=== PATIENT | male | born 1950 | race Caucasian/White ===

== ENCOUNTER → 2018-02-17 15:27 | Outpatient (REF) | payer MEDICARE, OTHER, SELFPAY ==
[2018-02-17 19:46] LABS: COMMENT (LAB VIEW ONLY) 97.37 mg/dL; Microalb ug/mg Crea 55.7 ug/mg Cr
== END ==
LOC: NCHCN 15:27
PROVIDERS: PCP Family Medicine; Visit Provider Family Medicine
DX: N39.0 Urinary tract infection, site not specified (principal); R73.09 Other abnormal glucose
CPT/HCPCS: 87077; 82043; 82570; 87086; 87186

== ENCOUNTER → 2018-04-21 10:01 | Outpatient (BNVA) | payer MEDICARE, OTHER, SELFPAY | PROVIDERS: PCP Family Medicine; Visit Provider Urology | DX: C67.9 Malignant neoplasm of bladder, unspecified (principal) | CPT/HCPCS: 52000; 99213 ==

== ENCOUNTER 2018-05-19 13:22 | Outpatient (REF) | payer MEDICARE, OTHER, SELFPAY ==
[2018-05-19 15:14] LABS: COMMENT (LAB VIEW ONLY) 219.38 mg/dL; Microalb ug/mg Crea 6.1 ug/mg Cr
[2018-05-19 19:06] LABS: Anion Gap 7.9 mmol/L (3-11); BUN 15 mg/dL (7-18); CO2 29.1 mmol/L (21.0-32.0); CREATININE 0.93 mg/dL (0.70-1.30); Calcium 8.8 mg/dL (8.5-10.1); Chloride 103 mmol/L (98-107); Glucose 112 mg/dL (70-100); Potassium 4.3 mmol/L (3.5-5.1); Sodium 140 mmol/L (136-145)
== END 2018-05-19 13:42 ==
LOC: NCHCN 13:22
PROVIDERS: PCP Family Medicine; Visit Provider Family Medicine
DX: E11.9 Type 2 diabetes mellitus without complications (principal)
CPT/HCPCS: 80048; 82043; 82570

== ENCOUNTER → 2018-07-28 12:37 | Outpatient (BNVA) | payer MEDICARE, OTHER, SELFPAY | PROVIDERS: PCP Family Medicine; Visit Provider Urology | DX: C67.9 Malignant neoplasm of bladder, unspecified (principal) | CPT/HCPCS: 52000; 99212 ==

== ENCOUNTER 2018-08-31 09:12 | Outpatient (CLI) | payer MEDICARE, OTHER, SELFPAY ==
--- NOTE | 2018-08-31 09:00 | DI.RAD_ITS ---
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 LESIONS LUMBAR SPINE: Comparison is made with CT of the abdomen and pelvis dated 03/02/12. There is a stable mild compression fracture of L 1. There is also a stable L 5 spondylolysis and mild L 5-S 1 spondylolisthesis. There is partial lumbarization of S 1. There is moderate narrowing of the L 5-S 1 disc space. This also appears unchanged. The remaining disc spaces are well maintained. Endplate osteophytes are seen. The patient is status post cholecystectomy. Stool is seen throughout the colon. The aorta shows calcification but appears normal in diameter. IMPRESSION: Stable L 1 compression fracture. Stable L 5 spondylolysis and mild L 5-S 1 spondylolisthesis.
== END 2018-08-31 09:32 ==
PROVIDERS: PCP Family Medicine; Visit Provider Family Medicine
DX: M54.31 Sciatica, right side (principal); M54.5 Low back pain; M43.06 Spondylolysis, lumbar region; M48.56XD Collapsed vertebra, not elsewhere classified, lumbar region, subsequent encounter for fracture with routine healing; M43.17 Spondylolisthesis, lumbosacral region
CPT/HCPCS: 72110

== ENCOUNTER → 2019-02-08 08:49 | Outpatient (BNVA) | payer MEDICARE, OTHER, SELFPAY | PROVIDERS: PCP Family Medicine; Visit Provider Urology | DX: Z85.51 Personal history of malignant neoplasm of bladder (principal) | CPT/HCPCS: 52000; 99212 ==

== ENCOUNTER 2019-05-22 10:23 | Outpatient (REF) | payer MEDICARE, OTHER, SELFPAY ==
[2019-05-22 18:53] LABS: Hemoglobin A1C 6.6 % (4.5-6.2)
[2019-05-22 19:11] LABS: CREATININE 1.02 mg/dL (0.70-1.30); Calculated LDL 91 mg/dL; Cholesterol 138 mg/dL (<200); HDL Cholesterol 36 mg/dL (40-60); Triglyceride 56 mg/dL (<150)
[2019-05-24 10:42] LABS: Hepatitis C Ab w Rflx HCV PCR Negative (Negative)
== END 2019-05-22 10:43 ==
LOC: NCHCN 10:23
PROVIDERS: PCP Family Medicine; Visit Provider Family Medicine
DX: E11.9 Type 2 diabetes mellitus without complications (principal); Z11.59 Encounter for screening for other viral diseases
CPT/HCPCS: 80061; 86803; 82565; 83036

== ENCOUNTER 2019-07-11 14:23 | Emergency (ER) | payer MEDICARE, OTHER, SELFPAY ==
[2019-07-11 14:30] VITALS: BP 148/81; PULSE 62; RESP 12; TEMP 36.3; O2SAT 96
[2019-07-11] MEDS: Normal Saline 1,000 ML 1000 ML IV (14:51)
[2019-07-11 14:54] VITALS: RESP 16
--- NOTE | 2019-07-11 15:19 | ED.GENADUL_ITS ---
Discharge Plan Disposition Patient Disposition: [facility] Condition: Serious Discharge Details Chief Complaint: Dizzy/Sync Clinical Impression: Vertigo Primary Care Provider: Glynn Farris ED Provider: Darin Lacey Home Meds and New Rx's Prescriptions: No Action omega-3 fatty acids-fish oil 1 EACH capsule 1 ea PO DAILY RF: 0 lutein 20 MG capsule 20 mg PO DAILY RF: 0 omeprazole 20 MG capsule,delayed release(DR/EC) 20 mg PO DAILY Qty: 14 RF: 1 ascorbic acid (vitamin C) 1,000 MG tablet 1,000 mg PO DAILY RF: 0 cetirizine 10 MG tablet 10 mg PO DAILY RF: 0 aspirin 81 MG tablet,chewable 81 mg PO DAILY RF: 0 cholecalciferol (vitamin D3) 1,000 UNITS tablet 1,000 units PO DAILY RF: 0 Discharge Data Discharge Date/Time-TO BE ENTERED AT DEPARTURE: 07/11/19 20:00 Medical Decision Making 15:50 --68-year-old male presents with positional vertigo since yesterday. Unsteady gait. Patient does have horizontal and rotary nystagmus. Head impulse testing inconclusive as patient had difficulty relaxing his neck for unpredictable turning. Skew testing negative. Chavo maneuver was performed without resolution of symptoms. Antivert to be administered. 18:00 -- MR brain interpreted by radiology: Upon further review there is nonspecific intermediate T1 and T2 signal within the right transverse sinus, right sigmoid sinus, and right internal jugular vein. Venous thrombosis cannot be excluded. MRA neck interpreted by radiology: IMPRESSION: No hemodynamically significant stenosis. MRA head interpreted by radiology: IMPRESSION: No acute findings. Recommend correlation with venographic imaging (CTV vs MRV). CTV and MRV are not available at this time at [facility] - plan to discuss with [facility] neurology. Study sent to [facility]. 18:07 --I spoke with Gonzalo at [facility] transfer center and requested transfer for neurologic evaluation. Awaiting callback from neurology. 18:38 -- I spoke with Dr. Guan at [facility] neurology. Recommends start heparin gtt and will accept the patient to the emergency department in transfer. Patient has no contraindications to heparin. Plan to start heparin infusion. HPI General Mode of arrival: ambulatory . Date/Time Provider Initiated Documentation: 07/11/19 14:53 . Limitations to Documentation: no limitations . Information obtained by: patient . HPI Narrative: 68-year-old male with prior history of malignant neoplasm of urinary bladder, presents with chief complaint of dizziness. Patient describes the dizziness as room spinning vertigo. Symptoms started yesterday and were mild and seem to be related to position of his head. When he woke up this morning symptoms were much worse. He had associated nausea and vomiting. Patient states that when he is lying flat he does not have symptoms but when he sits up and or moves his head he experiences dizziness. No associated headache. No visual changes. No numbness or weakness. No fevers. Related Data Home Medications Medication Instructions Recorded Confirmed lutein 20 mg PO DAILY 01/06/14 07/11/19 omeprazole 20 mg PO DAILY #14 capsule. 01/06/14 07/11/19 ascorbic acid (vitamin C) 1,000 mg PO DAILY 12/31/15 07/11/19 aspirin 81 mg PO DAILY 12/31/15 07/11/19 cetirizine 10 mg PO DAILY 12/31/15 07/11/19 omega-3 fatty acids-fish oil 1 ea PO DAILY 07/23/16 07/11/19 cholecalciferol (vitamin D3) 1,000 units PO DAILY 10/13/17 07/11/19 Previous Rx's Medication Instructions Recorded omeprazole 20 mg PO DAILY #14 capsule. 01/06/14 Allergies Allergy/AdvReac Type Severity Reaction Status Date / Time No Known Allergies Allergy Unverified 07/11/19 14:55 General Stated Complaint: Dizzy/Sync NORA: 3 Review of Systems All systems reviewed & are unremarkable except as noted in HPI and below Constitutional Constitutional: Denies fever(s) Neurologic Neurologic: Reports as per HPI [facility] Social History Smoking/Tobacco Use Status: Former Tobacco Use Alcohol Intake: current Drug use: Never Substance use type: does not use Do you feel safe at home: Yes Do you feel safe in your relationship?: Yes Exam Const General: cooperative and no acute distress HENMT Head: normocephalic and atraumatic Mouth: moist mucous membranes Eyes Conjunctivae: normal conjunctivae Sclera: normal sclerae Pupils: PERRL, accommodation normal and pupil size bilaterally 4 EOM: EOM intact bilaterally and nystagmus (horizontal on left gaze, and rotory on vertical gaze) Neck Neck: trachea midline and supple Resp Auscultation: clear to auscultation bilaterally, no rales, no rhonchi and no wheezes Cardio Jugular venous pressure: no JVD Rate: regular rate and not tachycardic Rhythm: regular rhythm GI Palpation: soft, not firm, no guarding, no masses, not rigid and nontender Skin General skin exam: no rashes or lesions noted Neuro General: alert, awake, oriented x3 and tone normal Cranial Nerves: facial strength normal, tongue midline and nystagmus (horizontal on left gaze, and rotory on vertical gaze) Cognition: normal cognition Speech: speech normal Gait: staggering Motor: muscle tone normal throughout and strength 5/5 throughout Sensory Exam: no sensory deficits noted Coordination: [id number] test normal and rapid alternating movement UE normal (normal) Extrem General: no edema Psych Appearance: grossly normal Mental Status: mental status grossly normal Speech and Movement: speech and movement normal Course Vital Signs Vital signs: Vital Signs Temperature 36.3 C L 07/11/19 14:30 Pulse 62 07/11/19 14:30 Respiratory Rate 12 07/11/19 14:30 Blood Pressure 148/81 H 07/11/19 14:30 Pulse Oximetry 96 07/11/19 14:30 Temperature 36.3 C L 07/11/19 14:30 Temperature Source Temporal Artery Scan 07/11/19 14:30 Pulse 62 07/11/19 14:30 Respiratory Rate 16 07/11/19 14:54 Respiratory Effort Non-Labored 07/11/19 14:54 Respiratory Depth Normal 07/11/19 14:54 Respiratory Pattern Normal 07/11/19 14:54 Blood Pressure 148/81 H 07/11/19 14:30 Blood Pressure Position Sitting 07/11/19 14:30 Pulse Oximetry 96 07/11/19 14:30 Oxygen Delivery Method Room Air 07/11/19 14:30 Oxygen Flow Rate 0 07/11/19 14:30 Pain Level 0 07/11/19 14:30 Critical Care Time Critical Care Time Critical Care Time: Yes Total Critical Care Time: 40 Attestation: I spent greater than 40 minutes addressing this patient's immediate life threats
[2019-07-11] MEDS: Meclizine 25 MG TAB PO (15:28)
[2019-07-11 15:44] LABS: Abs Immature Grans 0.03 k/cumm (0.0-0.09); Absolute Basophil Count 0.01 k/cumm (0.0-0.2); Absolute Eosinophil Count 0.01 k/cumm (0.0-0.7); Absolute Lymphocyte Count 1.29 k/cumm (1.2-3.4); Absolute Monocyte Count 0.25 k/cumm (0.11-0.7); Absolute Neutrophil Count 5.06 k/cumm (1.2-6.7); Basophils % 0.2; Eosinophils % 0.2; HCT 42.1 % (40.0-50.0); HGB 14.6 g/dL (13.5-17.5); Immature Grans % 0.5 %; Lymphocytes % 19.4; Mean Corp. HGB Concentration 34.7 g/dL (32.0-36.0); Mean Corpuscular Hemoglobin 31.4 pg (27.0-33.0); Mean Corpuscular Volume 90.5 fL (80-95); Mean Platelet Volume 10.6 fL (8.0-11.0); Monocytes % 3.8; Neutrophils % 75.9; Platelet Count 169 x1000/uL (130-400); RBC 4.65 m/cumm (4.50-6.00); RBC Distribution Width 12.3 % (11.8-14.1); White Blood Cell Count 6.65 k/cumm (4.4-10.8)
[2019-07-11 15:45] LABS: ALT 31 U/L (16-63); AST 17 U/L (15-37); Albumin 4.1 g/dL (3.4-5.0); Alkaline Phosphatase 57 U/L (46-116); Anion Gap 13.2 mmol/L (3-11); BUN 14 mg/dL (7-18); Bilirubin, Total 1.2 mg/dL (0.2-1.0); CO2 24.8 mmol/L (21.0-32.0); Chloride 101 mmol/L (98-107); Glucose 180 mg/dL (74-106); Magnesium 1.9 mg/dL (1.8-2.4); Potassium 3.9 mmol/L (3.5-5.1); Sodium 139 mmol/L (136-145); Total Protein 7.4 g/dL (6.4-8.2)
[2019-07-11] MEDS: Ondansetron 4 MG/2 ML VIAL IVP (16:08)
--- NOTE | 2019-07-11 16:26 | DI.MRI_ITS ---
EXAM: MR BRAIN WO, MRA BRAIN AND NECK CLINICAL HISTORY: vertigo. TECHNIQUE: Multiplanar multisequence MRI was performed. COMPARISON: MR ANGIO NECK WO from 07/11/2019 MR ANGIO BRAIN WO from 07/11/2019 MR ANGIO NECK WO from 07/11/2019 FINDINGS: MR examination of the brain was performed according to the usual protocol. The orbital and temporal bone structures appear intact. Diffusion-weighted imaging is unremarkable. Susceptibility weighted imaging is unremarkable. Scattered focal areas of abnormal signal in periventricular white matter no arabella consistent with microvascular ischemic change. No other significant signal abnormality identifie d in the brain. Ventricular system is normal in appearance. There is question of abnormal signal in the right transverse sinus, sigmoid sinus and internal jugula r vein on T1 and T2 weighted images. Thrombosis not excluded although this is probably artifactual. Correlation with MR venogram recommended. MR angiography of the xtiouc-dh-Twuauj region was performed according to the usual protocol. Interna l carotid, middle cerebral, anterior cerebral, and posterior cerebral arteries and major branches lacie ear intact as visualized. No aneurysm, dissection or stenosis. Venous system not visualized on this protocol. MR angiography of the carotid circulation was performed according to the usual protocol. Visualized common internal and external carotid arteries are unremarkable as visualized. Arteries in superior t horax not well seen due to artifact. IMPRESSION: No definite abnormality seen within the brain. Possible abnormality of venous sinuses on the right a s described above. Correlation with MR venogram recommended. MR angiography of the brain shows no evidence of abnormality of the cerebral arterial circulation. MR angiography of the neck also shows no evidence of abnormality of the cervical carotid arteries.
--- NOTE | 2019-07-11 17:37 | DI.VRAD_ITS ---
Addendum created by Óscar Miller MD on 07/11/2019 5:54:44 PM EST Upon further review there is nonspecific intermediate T1 and T2 signal within the right transverse sinus, right sigmoid sinus, and right internal jugular vein. Venous thrombosis cannot be excluded. Recommend correlation with venographic imaging (CTV vs MRV). THIS REPORT CONTAINS FINDINGS THAT MAY BE CRITICAL TO PATIENT CARE. The findings were verbally communicated via telephone conference with ROBSON SHAVER at 5:54 PM EST on 07/11/2019. The findings were acknowledged and understood. Initial report created on 07/11/2019 5:37:31 PM EST PROCEDURE INFORMATION: Exam: MR Head Without Contrast Exam date and time: 07/11/2019 5:13 PM Age: 68 years old Clinical indication: Other: Vertigo TECHNIQUE: Imaging protocol: MR of the head without contrast. 3D rendering: MIP and/or 3D reconstructed images were created by the technologist. COMPARISON: No relevant prior studies available. FINDINGS: Brain: Few scattered nonspecific T2 hyperintensities of the periventricular and deep subcortical white matter, most likely secondary to chronic small vessel ischemic change. No intracranial hemorrhage or extra-axial fluid collection. No evidence of mass effect or midline shift. No restricted diffusion to suggest acute infarct. Ventricles: No ventriculomegaly. Bones/joints: Unremarkable. Soft tissues: Unremarkable. Sinuses: Unremarkable. Mastoid air cells: No mastoid effusion. Orbits: Unremarkable. IMPRESSION: No acute intracranial pathology. Dictated and Authenticated by: Óscar Miller MD. Ordering:HANSEL Webster MD
--- NOTE | 2019-07-11 17:38 | DI.VRAD_ITS ---
PROCEDURE INFORMATION: Exam: MR Angiogram Head Without Contrast, Arteries Exam date and time: 07/11/2019 5:14 PM Age: 68 years old Clinical indication: Other: Vertigo TECHNIQUE: Imaging protocol: MR angiogram head without contrast. Exam focused on the arteries. 3D rendering: MIP and/or 3D reconstructed images were created by the technologist. COMPARISON: No relevant prior studies available. FINDINGS: Right internal carotid artery: Unremarkable. Intracranial segment is patent with no significant stenosis. No aneurysm. Right anterior cerebral artery: Unremarkable. No occlusion or significant stenosis. No aneurysm. Right middle cerebral artery: Unremarkable. No occlusion or significant stenosis. No aneurysm. Right posterior cerebral artery: Unremarkable. No occlusion or significant stenosis. No aneurysm. Right vertebral artery: Unremarkable. No occlusion or significant stenosis. No aneurysm. Left internal carotid artery: Unremarkable. Intracranial segment is patent with no significant stenosis. No aneurysm. Left anterior cerebral artery: Unremarkable. No occlusion or significant stenosis. No aneurysm. Left middle cerebral artery: Unremarkable. No occlusion or significant stenosis. No aneurysm. Left posterior cerebral artery: Unremarkable. No occlusion or significant stenosis. No aneurysm. Left vertebral artery: Unremarkable. No occlusion or significant stenosis. No aneurysm. Basilar artery: Unremarkable. No occlusion or significant stenosis. No aneurysm. IMPRESSION: No acute findings. Dictated and Authenticated by: Óscar Miller MD. Ordering:HANSEL Webster MD
--- NOTE | 2019-07-11 17:40 | DI.VRAD_ITS ---
PROCEDURE INFORMATION: Exam: MR Angiography Neck Without Contrast Exam date and time: 07/11/2019 5:14 PM Age: 68 years old Clinical indication: Other: Vertigo TECHNIQUE: Imaging protocol: Magnetic resonance angiography of the neck without contrast. COMPARISON: No relevant prior studies available. FINDINGS: Right common carotid artery: No significant stenosis or occlusion. Right internal carotid artery: Extracranial segment is patent without evidence of hemodynamically significant stenosis. Right external carotid artery: Unremarkable. Right vertebral artery: No significant stenosis or occlusion. Left common carotid artery: No significant stenosis or occlusion. Left internal carotid artery: Extracranial segment is patent without evidence of hemodynamically significant stenosis. Left external carotid artery: Unremarkable. Left vertebral artery: No significant stenosis or occlusion. IMPRESSION: No hemodynamically significant stenosis. COMMENT: Reference per NASCET criteria for degree of stenosis: Mild: less than 50% stenosis. Moderate: 50-69% stenosis. Severe: 70-94% stenosis. Near occlusion: 95-99% stenosis. Dictated and Authenticated by: Óscar Miller MD. Ordering:HANSEL Webster MD
[2019-07-11 17:43] LABS: Bilirubin Negative (Negative); Blood Negative (Negative); Clarity Clear (Clear); Glucose Negative (Negative); Ketones 15 mg/dL (Negative); Leukocyte Esterase Negative (Negative); Nitrite Negative (Negative); Urobilinogen 0.2 EU/dL (Up TO 0.2)
[2019-07-11 17:44] VITALS: BP 139/77; PULSE 60; RESP 18; TEMP 36.5; O2SAT 99
[2019-07-11 18:46] VITALS: BP 157/90; PULSE 64; RESP 15; TEMP 36.8; O2SAT 92
[2019-07-11 19:22] VITALS: BP 125/60; PULSE 59; RESP 16; TEMP 37; O2SAT 99
[2019-07-11 19:28] LABS: PTT Activated 20.6 sec (21.0-31.4)
[2019-07-11 19:50] VITALS: BP 127/71; PULSE 68; RESP 16; TEMP 37; O2SAT 98
== END 2019-07-11 20:00 | disposition short-term general hospital (02) ==
PROVIDERS: Emergency Provider Student in an Organized Health Care Education/Training Program; PCP Family Medicine
DX: R42 Dizziness and giddiness (principal); R26.81 Unsteadiness on feet; R11.2 Nausea with vomiting, unspecified
CPT/HCPCS: 36415; 70544; 70547; 80053; 93005; 96361; 96365; 96375; 99285; 70551; 81003; 83735; 85025; 85730; 93010; J2405

== ENCOUNTER 2020-04-29 16:17 | Outpatient (REF) | payer MEDICARE, OTHER, SELFPAY ==
[2020-05-04 17:17] LABS: Patient Race White; SARS-CoV-2 RNA Undetected (Undetected); SARS-CoV-2 Specimen Source Nasal
== END 2020-04-29 16:37 ==
LOC: NCHCN 16:17
PROVIDERS: PCP Family Medicine; Visit Provider Physician Assistant
DX: Z11.59 Encounter for screening for other viral diseases (principal)
CPT/HCPCS: U0003

== ENCOUNTER 2020-05-07 13:02 | Outpatient (REF) | payer MEDICARE, OTHER, SELFPAY ==
[2020-05-07 20:13] LABS: Anion Gap 8.2 mmol/L (3-11); BUN 16 mg/dL (7-18); CO2 30.8 mmol/L (21.0-32.0); CREATININE 1.04 mg/dL (0.70-1.30); Calcium 9.2 mg/dL (8.5-10.1); Chloride 100 mmol/L (98-107); Glucose 125 mg/dL (74-106); Potassium 4.2 mmol/L (3.5-5.1); Sodium 139 mmol/L (136-145); TSH (W/Ref FT4) 2.01 uIU/mL (0.36-3.74); Vitamin B12 173 pg/mL (193-986)
== END 2020-05-07 13:22 ==
LOC: NCHCN 13:02
PROVIDERS: PCP Family Medicine; Visit Provider Family Medicine
DX: G56.03 Carpal tunnel syndrome, bilateral upper limbs (principal); E11.9 Type 2 diabetes mellitus without complications
CPT/HCPCS: 80048; 82607; 84443

== ENCOUNTER 2020-05-28 17:48 | Outpatient (REF) | payer MEDICARE, OTHER, SELFPAY ==
[2020-06-01 10:13] LABS: Patient Race White; SARS-CoV-2 RNA Undetected (Undetected); SARS-CoV-2 Specimen Source Nasal
== END 2020-05-28 18:08 ==
LOC: NCHCN 17:48
PROVIDERS: PCP Family Medicine; Visit Provider Physician Assistant
DX: Z11.59 Encounter for screening for other viral diseases (principal)
CPT/HCPCS: U0003

== ENCOUNTER 2020-06-25 01:22 | Outpatient (CLI) | payer OTHER, SELFPAY ==
--- OUTSIDE RECORDS SUMMARY | 2020-06-25 01:25 | XMS_ITS | Encounter Summary ---
:1950 Author Organization [facility] Address [address] [place] [id number] Support Name Relationship Address Phone HINA Unavailable [address] [facility] [address] HINA Unavailable [address] [place] [address] Insurance Providers: All historical and current Section Date Range: From patient's date of to the date document was created.This section includes the names of all active insurance providers for the patient. Insurance Type of Plan Start of End of Group Member Insurance Policy P atient's Provider Coverage Name Policy Policy Number ID Provider's Cornell's Relationship Coverage Coverage Telephone Name to Policy Number Cornell EXPRESS PRESCRIPT TRICA Dec 02, [place] [id number] [phone] CARLTON SANTAMARIA PATIENT SCRIPTS ION RE 2018 44 4 AIN [place] MEDICARE MEDICARE PART Dec 02, PART A [id number] CARLTON SANTAMARIA ISL PATIENT (WNR) (M) A 2018 [id number] AIN MEDICARE MEDICARE PART Dec 02, PART B [id number] CARLTON SANTAMARIA ISYaa PATIENT (WNR) (M) B 2018 [id number] AIN -FO TRICA Dec 02, [id number] Chi SANTAMARIA HISL PATIENT R-LIFE RE 2018 [id number] AIN Selected Encounter This section includes the information on record at [place] for the Encounter. Date/Time Encounter Type Encounter Reason Provider Source Description Sep 11, 2019 Outpatient OPTOMETRY ICD-10-CM Z46.0 JAMSHID JEFFERS 01:00 PM Encounter Encounter for TOM fit/adjst of spectacles and contact lenses with Provider Comments: Encounter for Fitting and Adjustment of Spectacles and Contact Lenses IHE Encounter Template Text not used by [place] Assessments - Encounter Diagnoses This section includes the primary and secondary diagnoses documented forthe Encounter. Date/Time Primary/Secondary Diagnosis Name Provider Source Diagnosis Sep 11, 2019 PRIMARY Encounter for HALLE LUEVANO 01:09 PM fit/adjst of [place] [facility] spectacles and contact lenses Plan of Treatment: Future Appointments (+ 6 months) and Future Tests (+/- 45 days) The Plan of Treatment section includes future care activities for the patient from all [place] treatment facilities. This section includes future appointments and future orders which are active, pending or scheduled.Future Appointments This section includes appointments that were scheduled to occur 6 months from the date of the Encounter, up to a maximum of 20 appointments. The data [facility] [place] [facility] Appointment Date/Time Appointment Type Appointment Facili ty Name Mar 06, 2020 11:00 AM AMBULATORY - SURGERY [place] [facility] Encounter Notes: All associated encounter notes This section contains the clinical notes associated to the Encounter. 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 /landon/ JAMSHID JEFFERS Wardrobe Custodian Signed: 09/11/2019 13:09
--- OUTSIDE RECORDS SUMMARY | 2020-06-25 01:25 | XMS_ITS ---
:1950 Author Organization [facility] Address [address] [place] [id number] Support Name Relationship Address Phone HINA Unavailable [address] [facility] [place] [address] HINA Unavailable [address] [facility] [place] [address] Insurance Providers: All historical and current Section [...] Cornell EXPRESS PRESCRIPT TRICA Dec 02, [place] [id number] [phone] CARLTON SANTAMARIA PATIENT SCRIPTS ION RE 2018 44 4 AIN [place] MEDICARE MEDICARE PART Dec 02, PART A [id number] CARLTON SANTAMARIAL PATIENT (WNR) (M) A 2018 [id number] 2 AIN MEDICARE MEDICARE PART Dec 02, PART B [id number] CARLTON SANTAMARIA PATIENT (WNR) (M) B 2018 [id number] AIN -FO TRICA Dec 02, [id number] Chi SANTAMARIA HISL PATIENT R-LIFE RE 2018 95 404 AIN Selected Encounter This section includes the information on record at [place] for the Encounter. Date/Time Encounter Type Encounter Reason Provider Source Description Aug 31, 2019 OFFICE OR OTHER PRIMARY ICD-10-CM Z23 PAMELATIGTHERESA STANLEY 10:00 AM OUTPATIENT VISIT CARE/MEDICINE Encounter for ORA A FOR THE immunization with EVALUATION AND Provider MANAGEMENT OF AN Comments: ESTABLISHED Encounter for PATIENT, THAT MAY Immunization NOT REQUIRE THE PRESENCE OF A PHYSICIAN OR OTHER QUALIFIED HEALTH OCCUPATIONAL THERAPY PROGRAM DIRECTOR. USUALLY, THE PRESENTING PROBLEM(S) ARE MINIMAL. TYPICALLY, 5 MINUTES ARE SPENT PERFORMING OR SUPERVISING THESE SERVICES. [facility] Encounter Template Text not used by [place] Assessments - Encounter Diagnoses This section includes the primary and secondary diagnoses documented forthe Encounter. Date/Time Primary/Secondary Diagnosis Name Provider Source Diagnosis Aug 31, 2019 PRIMARY Encounter for QUENTIN FERGUSON 09:51 AM immunization [facility] Plan of Treatment: Future Appointments (+ 6 months) and Future Tests (+/- 45 days) The Plan of Treatment section includes future care activities for the patient from all [place] treatment facilities. This section includes future appointments and future orders which are active, pending or scheduled.Future Appointments This section includes appointments that were scheduled to occur 6 months from the date of the Encounter, up to a maximum of 20 appointments. The data comes from all [place] [facility] Appointment Date/Time Appointment Type Appointment Facili ty Name Sep 11, 2019 12:00 PM AM[place]ORY [place] [facility] Sep 11, 2019 01:00 PM [facility] - [place] [facility] Immunizations: All administered on the encounter date This section contains immunizations associated to the Encounter. Immunization Series Date Issued Reaction Comments ZOSTER RECOMBINANT 2 Aug 31, 2019 Social History: Smoking Status (Most current) and Tobacco Use (All prior to encounter date) This section includes the most current, and the historical, smoking and tobacco-related health factors from the [place] facility where the Encounter took place.Current Smoking Status This section includes the most current smoking, or tobacco-related health factor, from the [place] facility where the Encounter took place. Date/Time Current Smoking Status Comment Facility May 09, 2019 03:56 PM [place]-TOBACCO QUIT 5 TO < 15 YRS [facility] Tobacco Use History This section includes a history of the smoking, or tobacco-related health factors, that were collected on or before the date of the Encounter. The data comes from the [place] facility where the Encounter took place. Date/Time Smoking Status/Tobacco Use Comment [facility] May 09, 2019 03:56 PM [place]-TOBACCO QUIT 5 TO < 15 YRS [facility] Encounter Notes: All associated encounter notes This section contains the clinical notes associated to the Encounter. 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
--- OUTSIDE RECORDS SUMMARY | 2020-06-25 01:25 | XMS_ITS | Encounter Summary ---
:1950 Author Organization [facility] Address [address] [place] [id number] Support Name Relationship Address Phone HINA Unavailable [address] [facility] [place] [address] HINA Unavailable [address] [facility] [place] [address] Insurance Providers: All historical and current Section [...] Cornell EXPRESS PRESCRIPT TRICA Dec 02, DOD[place] [id number] [phone] CARLTON SANTAMARIA PATIENT SCRIPTS ION RE 2017 44 4 AIN [place] MEDICARE MEDICARE PART Dec 02, PART A [id number] CARLTON SANTAMARIAL PATIENT (WNR) (M) A 2018 KQ14 2 AIN MEDICARE MEDICARE PART Dec 02, PART B [id number] CARLTON SANTAMARIA ISYaa PATIENT (WNR) (M) B 2018 KQ14 2 AIN -FO TRICA Dec 02, 339 [id number] Chi SANTAMARIA HISL PATIENT R-LIFE RE 2018 [id number] AIN Selected Encounter This section includes the [facility] at [facility]. Date/Time Encounter Type Encounter Description Reason Provider Source Jun 24, 2020 09:07 Outpatient Encounter PRIMARY CARE/MEDICINE AM IHE Encounter Template Text not used by [facility] Plan of Treatment: Future Appointments (+ 6 months) and Future Tests (+/- 45 days) The Plan of Treatment section includes future care activities for the patient from all [place] treatment facilities. This section includes future appointments and future orders which are active, pending or scheduled.Future Appointments This section includes appointments that were scheduled to occur 6 months from the date of the Encounter, up to a maximum of 20 appointments. The data comes from all [facility]. Appointment Date/Time Appointment Type Appointment Facili ty Name Aug 11, 2020 08:30 AM AMBULATORY - REHAB MEDICINE MITZI QUISPELynda Edison [facility] Active, Pending, and Scheduled Orders This section includes a listing of several types of active, pending, and scheduled orders, including clinic medications orders, diagnostic test orders, procedure orders and consult orders; where the start date of the order is 45 days before the date of the Encounter or 45 days after the date of the Encounter. The data comes from all [place] treatment facilities. Test Date/Time Test Type Test Details Facility Name Jun 19, 2020 12:22 PM Consult Order COMMUNITY CARE-CT Cons [facility] Lab Results: +/- 30 days of the encounter This section includes the Chemistry and Hematology Lab Results on record with DC for the patient. Radiology Reports and Pathology Reports are provided separately, in subsequent sections.Lab Results This section contains the Chemistry/Hematology Results that were resulted 30 days before or 30 days after the date of the Encounter. Date/Time Source Result Type Result - Unit Interpretation Reference Range Comment Jun 19, 2020 [facility] MICROALBUMIN/CREATININE RATIO Sp ecimen Type: URINE 12:[address] [facility] PANEL Comment: Tests performed on [employer] Member ([phone]) Ordering Provide r: TRINH GOLDEN Report Released Date/Time: Jun 19, 2020 12:17 PM Reporting Lab: [facility] [address] [facility] [place] [address] Performing Lab: [facility] [address] [facility] [address] CREATININE (URINE,RANDOM) 55.7 mg/dL MICROALBUMIN, QUANTITATIVE 0.5 mg/dL 0.0 -29.9 MICROALBUMIN/CREATININE RATIO 9.0 mg/g 0.0-29.9 Encounter Notes: All associated encounter notes This section contains the clinical notes associated to the Encounter. Date/Time Encounter Note(s) Provider Source Jun 24, 2020 09:07 AM PRIMARY CARE NURSING NOTE: DELLA HAJI [facility] LOCAL TITLE: Amb Care Nursing Note STANDARD TITLE: PRIMARY CARE NURSING NOTE DATE OF NOTE: JUN 24, 2020@09:07 ENTRY DATE: JUN 24, 2020@09:07:07 AUTHOR: DELLA HAJI EXP COSIGNER: URGENCY: STATUS: COMPLETED EVENT PROCEDURE: Primary Care Note DATE OF SERVICE: 05/07/20 TREATING FACILITY: [facility] THE ATTACHED SCANNED DOCUMENT HAS BEEN REVIEWED AND AUTHORIZED BY DOCUMENT (S) SENT TO [facility] TO BE SCANNED. TO VIEW THIS DOCUMENT, OPEN CPRS TOOLS MENU AND THEN OPEN THE IMAGE DISPLAY VIEWER. /landon/ DELLA HAJI Signed: 06/24/2020 09:07
--- OUTSIDE RECORDS SUMMARY | 2020-06-25 01:25 | XMS_ITS | Encounter Summary ---
:1950 Author Organization [facility] Address [address] [place] [id number] Support Name Relationship Address Phone HINA Unavailable [address] [facility] [place] [address] HINA Unavailable [address] [facility] [place] [address] Insurance Providers: All historical and current Section [...] Cornell EXPRESS PRESCRIPT TRICA Dec 02, DODA [id number] [phone] CARLTON SANTAMARIA PATIENT SCRIPTS ION RE 2018 44 4 AIN [place] MEDICARE MEDICARE PART Dec 02, PART A [id number] CARLTON SANTAMARIA PATIENT (WNR) (M) A 2018 KQ14 2 AIN MEDICARE MEDICARE PART Dec 02, PART B [id number] CARLTON SANTAMARIA PATIENT (WNR) (M) B 2018 KQ14 2 AIN -FO TRICA Dec 02, 862 [id number] Chi SANTAMARIA HISL PATIENT R-LIFE RE 2018 [id number] AIN Selected Encounter This section includes the information on record at [facility] for the Encounter. Date/Time Encounter Type Encounter Reason Provider Source Description Jul 17, 2019 Outpatient AUDIOLOGY ICD-10-CM H90.3 ARNIE DRUMMOND 10:00 AM Encounter Sensorineural Y A hearing loss, bilateral with Provider Comments: Asymmetrical sensorineural hearing loss (SNOMED CT [id number]) IHE Encounter Template Text not used by CT Assessments - Encounter Diagnoses This section includes the primary and secondary diagnoses documented forthe Encounter. Date/Time Primary/Secondary Diagnosis Name Provider Source Diagnosis Jul 17, 2019 PRIMARY Sensorineural QUENTIN FERGUSON Y 01:17 PM hearing loss, [facility] bilateral Plan of Treatment: Future Appointments (+ 6 months) and Future Tests (+/- 45 days) The Plan of Treatment section includes future care activities for the patient from all [place] treatment facilities. This section includes future appointments and future orders which are active, pending or scheduled.Future Appointments This section includes appointments that were scheduled to occur 6 months from the date of the Encounter, up to a maximum of 20 appointments. The [facility] Appointment Date/Time Appointment Type Appointment Facili ty Name Aug 09, 2019 08:30 AM [place] [facility] Aug 31, 2019 10:00 AM [place]ORY [place] [facility] Sep 11, 2019 12:00 PM [facility] [place] [facility] Sep 11, 2019 01:00 PM [facility] [place] [place] [facility] Social History: Smoking Status (Most current) and Tobacco Use (All prior to encounter date) This section includes the most current, and the historical, smoking and tobacco-related health factors from the CT facility where the Encounter took place.Current Smoking Status This section includes the most current smoking, or tobacco-related health factor, from the [place] facility where the Encounter took place. Date/Time Current Smoking Status Comment Facility May 09, 2019 03:[address]-TOBACCO QUIT 5 TO < 15 YRS [facility] Tobacco Use History This section includes a history of the smoking, or tobacco-related health factors, that were collected on or before the date of the Encounter. The data comes from the CT facility where the Encounter took place. Date/Time Smoking Status/Tobacco Use Comment [facility] May 09, 2019 03:56 [facility] Encounter Notes: All associated encounter notes This section contains the clinical notes associated to the Encounter. Date/Time Encounter Note(s) Provider Source Jul 17, 2019 10:23 AM AUDIOLOGY NOTE: DEVIN DRUMMOND [facility] LOCAL TITLE: Audiology Note STANDARD TITLE: AUDIOLOGY NOTE DATE OF NOTE: JUL 17, 2019@10:23 ENTRY DATE: JUL 17, 2019@10:24:03 AUTHOR: DEVIN DRUMMOND COSIGNER: URGENCY: STATUS: COMPLETED AUDIOLOGIC EVALUATION: REFERRED BY: Self/PCP : 1950 AGE: 68 REASON FOR EVALUATION & GENE RAL MEDICAL HISTORY: Adrian is new to the Audiology clinic. He said he recently went for a f ree hearing screening and hearing aids were recommended. His primary complaint is diffi culties understanding speech, especially female voices and in the pres ence of background noise. He has never worn hearing aids and is interested in amplifica tion if he is a candidate. Adrian said last Tuesday (07/11/19) he woke up with severe vertigo that was debilitating. He denied having vertigo p rior to this episode. He said he could not open his eyes and could not move. He was als o nauseous. He denied aural fullness, tinnitus, and any change to his hearin g while he was having the episode. He went to [facility] and saw a Neurologist. He said they did scans to determine if he had a stroke and they came back normal. He was not given any medication. PT was recommend ed and he has his first appointment on 07/23/19 at a clinic in the private sector. [place] said today he still feels off and occasionally still feels nauseous. 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 It is not bothersome. DIZZINESS/VERTIGO: See above FAMILY HISTORY OF HEARING LOSS: Denied OTOLOGIC HISTORY: [place] denied ear pain, aural fullness, otorrhea and any sudden otologic changes. 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 Unremarkable. TYMPANOMETRY: Type A tympanogram - middle ear compliance, pres sure and ear canal volume are within normal limits AD Type Ad tympanogram - hyper-compliant middle ear system with pressure and ear canal volume within normal limits ACOUSTIC REFLEXES: Absent at 1000 Hz ipsi AD Present at 1000 Hz ipsi RELIABILITY: Good SYMMETRY: Asymmetrical DEGREE AND TYPE OF HEARING LOSS: RIGHT: Mild to moderate sensorineural hearing lo ss LEFT: Mild sensorineural hearing loss WORD DISCRIMINATION: JEREMY W-22/25 RIGHT - 92% at 65 dB HL w/masking SRT: 16 dB HL LEFT - 92% at 65 dB HL w/masking SRT: 16 dB HL AUDIOGRAM Audiogram is available in this patient's electro mary medical record. To view the actual audiogram , click the Tools menu, and choose Rehab Medicine then Audiogram Display EDUCATION: Patient was counseled on the test results, benef its and limitations of amplification, and strategies to improve communi cation. RECOMMENDATIONS: Recommended an eConsult to ENT for a second opinion on his vertigo. He was in agreement . [place] will continue with treatment set forth by [facility]. He has a PT appointment scheduled on 07/23/19. He is a hearing aid candidate [place] based on audiom etric data, and patient subjective complaints. He is motivated to try am plification. Discussed styles and options for amplification. Based on degree/c onfiguration of loss, recommended a trial with SHARI style- he agreed an d would like rechargeable hearing aids. The following hearing aids were or dered: RIGHT EAR/LEFT EAR Model: OPN S 1 MINIRITE-R Warranty: 3YR Circuit: OPN Options: *ADAPTIVE POLAR PLOTS, WIRELESS [STD], ADAPTIVE FEEDBACK CANCELLATION [STD], ADAPTIVE NOISE CANCELLATION [STD], CHARGE R MINIRITE LITHIUM-ION [STD], SPEAKER SIZE 2 85 MINIFIT Shell Color: CHROMA BEIGE 90 (CBE) Wax Prevent.: MINI PROWAX Miscellaneous: NONE SHARI Item: DOME 8MM MINIFIT PLAN: -ENT eConsult for vertigo -Schedule a hearing aid fitting appointment at t he [facility] -Hearing evaluation in 2-3 years or sooner if a sudden change is noted -f/u per request PROCEDURES COMPLETED: Otoscopy Tympanometry Acoustic Reflex Air Conduction Threshold Testing Bone Conduction Threshold Testing Speech Glass Block Bender Threshold Testing Word Recognition Testing Hearing Aid Order (Binaural) /landon/ Milli NUR Registered Nursing Professor Signed: 07/17/2019 13:18
--- OUTSIDE RECORDS SUMMARY | 2020-06-25 01:25 | XMS_ITS | Encounter Summary ---
:1950 Author Organization [facility] Address [address] [place] [address] Support Name Relationship Address Phone HINA Unavailable [address] [facility] [address] HINA Unavailable [address] [facility] [place] [address] Insurance Providers: All historical and current Section [...] Cornell EXPRESS PRESCRIPT TRICA Dec 02, DODA [id number] [phone] CARLTON SANTAMARIA PATIENT SCRIPTS ION RE 2018 44 4 AIN [place] MEDICARE MEDICARE PART Dec 02, PART A [id number] CARLTON SANTAMARIA ISL PATIENT (WNR) (M) A 2018 KQ14 2 AIN MEDICARE MEDICARE PART Dec 02, PART B [id number] CARLTON SANTAMARIA ISYaa PATIENT (WNR) (M) B 2018 KQ14 2 AIN -FO TRICA Dec 02, 003 [id number] [phone] Chi SANTAMARIA HISL PATIENT R-LIFE RE 2018 [id number] AIN Selected Encounter This section includes the [facility] at [facility] for the Encounter. Date/Time Encounter Type Encounter Reason Provider Source Description Jul 18, 2019 Outpatient OTOLARYNGOLOGY/E ICD-10-CM H90.3 ROBSON OCHOA 04:55 PM Encounter NT Sensorineural hearing loss, bilateral with Provider Comments: Asymmetrical sensorineural hearing loss ([facility] [id number]) IHE Encounter Template Text not used by [place] Assessments - Encounter Diagnoses This section includes the primary and secondary diagnoses documented forthe Encounter. Date/Time Primary/Secondary Diagnosis Name Provider Source Diagnosis Jul 18, 2019 PRIMARY Sensorineural ROBSON OCHOA 05:14 PM hearing loss, [facility] bilateral Jul 18, 2019 SECONDARY Vertigo of central ROBSON OCHOA RI SESAR 05:14 PM origin [facility] Plan of Treatment: Future Appointments (+ 6 months) and Future Tests (+/- 45 days) The Plan of Treatment section includes future care activities for the patient from all [place] treatment facilities. This section includes future appointments and future orders which are active, pending or scheduled.Future Appointments This section includes appointments that were scheduled to occur 6 months from the date of the Encounter, up to a maximum of 20 appointments. The [facility] Appointment Date/Time Appointment Type Appointment Facili ty Name Aug 09, 2019 08:30 AM AMBULATORY - [place] [facility] Aug 31, 2019 10:00 AM AM[place]UL[place]ORY - [place]IC[place] [facility] Sep 11, 2019 12:00 PM [facility] [place] [facility] Sep 11, 2019 01:00 PM [facility] - [place] [facility] Encounter Notes: All associated encounter notes This section contains the clinical notes associated to the Encounter. Date/Time Encounter Note(s) Provider Source Jul 18, 2019 04:55 PM CONSULT: ROBSON OCHOA LOCAL TITLE: E-Consult Note [facility] STANDARD TITLE: CONSULT DATE OF NOTE: JUL 18, 2019@16:55 ENTRY DATE: JUL 18, 2019@16:55:46 AUTHOR: ROBSON OCHOA EXP COSIGNER: URGENCY: STATUS: COMPLETED This is being handled as an E-Consult per reques t to facilitate care. Reason for consult is vertigo: History available as documneted by audiolgy note : said last Tuesday (07/11/19) he woke up with severe vertigo that was debilitating. He denied having vertigo prior to this episode. He said he could not open his eyes and could not move. He was als o nauseous. He denied aural fullness, tinnitus, and any change to his hearin g while he was having the episode. He went to [facility] and saw a Neurolog ist. He said they did scans to determine if he had a stroke and they came back normal. He was not given any medication. PT was recommended and he has his fi rst appointment on 07/23/19 at a clinic in the private sector. [place] said today he still feels off and occasionally still feels nauseous. I reviewed his audiogram from 07/17/19 showing mi lateral mild HFSNHL with excellent WR bilaterally. Interaural asymmetry at 3k hz is not significant at only 10 dB. I reviewed [facility] records including MRA head from 07/11/19 at [facility] read as normal. Overread showed concern for right sigmoid thromb osis f/u CTV head was read as normal I reviewed the CT head 07/12/19 showing no mastoid or middle ear pathology. no sccd. Neurology consult notes reviewed. exam document ed steady left beating nystagmus at rest. Based on review of the above limited data, the e pisode is consistent with vestibular neuritis or small stroke/central path ology which was too small to detect on his MRI. There is no significant asymmetry in hearing and he did not have any aural symptoms at the time of the vertigo, which makes Meniere's unlikely. I agree with PT recommendation. If there was a vestibul ar injury, compensation can be helped by vestibular PT. If vertigo becomes recurrent/episodic or aural s ymptoms present, consider outpatient ENT referral. If hearing changes in either ear, please repeat audiogram while symptomatic. If interaural asym metry progresses, consider repeat MRI with contrast using IAC protocol. /landon/ ROBSON Singh MD Signed: 07/18/2019 17:15
--- OUTSIDE RECORDS SUMMARY | 2020-06-25 01:25 | XMS_ITS | Encounter Summary ---
:1950 Author Organization [facility] Address [address] [place] [address] Support Name Relationship Address Phone HINA Unavailable [address] [facility] [place] [address] HINA Unavailable [address] [facility] [place] [address] Insurance Providers: All historical and current Section [...] Cornell EXPRESS PRESCRIPT TRICA Dec 02, DODA [id number] [phone] CARLTON SANTAMARIA PATIENT SCRIPTS ION RE 2018 44 4 AIN [place]OD[place] MEDICARE MEDICARE PART Dec 02, PART A [id number] CARLTON SANTAMARIAL PATIENT (WNR) (M) A 2018 [id number] 2 AIN MEDICARE MEDICARE PART Dec 02, PART B [id number] CARLTON SANTAMARIA PATIENT (WNR) (M) B 2018 KQ14 2 AIN -FO TRICA Dec 02, 802 [id number] Chi SANTAMARIA HISYaa PATIENT R-LIFE RE 2018 [id number] AIN Selected Encounter This section includes the information on record at [place] for the Encounter. Date/Time Encounter Type Encounter Reason Provider Source Description Jun 19, 2020 Outpatient PRIMARY ICD-10-CM Z00.01 TRINH ZUNIGA 11:30 AM Encounter CARE/MEDICINE Encounter for SIS general adult medical exam w abnormal findings with Provider Comments: Encounter for General Adult Medical Examination with Abnormal Findings IHE Encounter Template Text not used by [facility] Assessments - Encounter Diagnoses This section includes the primary and secondary diagnoses documented forthe Encounter. Date/Time Primary/Secondary Diagnosis Name Provider Source Diagnosis Jun 19, 2020 PRIMARY Encounter for ALEXY ZIMMERMAN Y 12:26 PM general adult CBOC medical exam w abnormal findings Plan of Treatment: Future Appointments (+ 6 months) and Future Tests (+/- 45 days) The Plan of Treatment section includes future care activities for the patient from all [place] treatment facilities. This section includes future appointments and future orders which are active, pending or scheduled.Future Appointments This section includes appointments that were scheduled to occur 6 months from the date of the Encounter, up to a maximum of 20 appointments. The data comes from all [facility]. Appointment Date/Time Appointment Type Appointment Facili ty Name Aug 11, 2020 08:30 AM AMBULATORY - REHAB MEDICINE MITZI Hogan [facility] Active, Pending, and Scheduled Orders This section includes a listing of several types of active, pending, and scheduled orders, including clinic medications orders, diagnostic test orders, procedure orders and consult orders; where the start date of the order is 45 days before the date of the Encounter or 45 days after the date of the Encounter. The data comes from all [place] treatment facilities. Test Date/Time Test Type Test Details Facility Name Jun 19, 2020 12:22 PM Consult Order COMMUNITY CARE-CT Cons [facility] Wildlife Veterinarian's Choice Lab Results: +/- 30 days of the encounter This section includes the Chemistry and Hematology Lab Results on record with PR for the patient. Radiology Reports and Pathology Reports are provided separately, in subsequent sections.Lab Results This section contains the Chemistry/Hematology Results that were resulted 30 days before or 30 days after the date of the Encounter. Date/Time Source Result Type Result - Unit Interpretation Reference Range Comment Jun 19, 2020 [facility] MICROALBUMIN/CREATININE RATIO Sp ecimen Type: URINE 12:18 PM [facility] PANEL Comment: Tests performed on MedTel24 Form Building Supervisor (405) Ordering Provide r: TRINH ZUNIGA Report Released Date/Time: Jun 19, 2020 12:17 PM Reporting Lab: [facility] [address] [facility] [place] [address] Performing Lab: [place] [id number] [address] CREATININE (URINE,RANDOM) 55.7 mg/dL MICROALBUMIN, QUANTITATIVE 0.5 mg/dL 0.0 -29.9 MICROALBUMIN/CREATININE RATIO 9.0 mg/g 0.0-29.9 Social History: Smoking Status (Most current) and Tobacco Use (All prior to encounter date) This section includes the most current, and the historical, smoking and tobacco-related health factors from the PR facility where the Encounter took place.Current Smoking Status This section includes the most current smoking, or tobacco-related health factor, from the PR facility where the Encounter took place. Date/Time Current Smoking Status Comment Facility Jun 19, 2020 11:30 AM VA-TOBACCO FORMER USER [facility] Tobacco Use History This section includes a history of the smoking, or tobacco-related health factors, that were collected on or before the date of the Encounter. The data comes from the PR facility where the Encounter took place. Date/Time Smoking Status/Tobacco Use Comment [facility] Jun 19, 2020 11:30 AM VA-TOBACCO QUIT 15 YRS OR MORE [facility] May 09, 2019 03:56 PM VA-TOBACCO FORMER USER [facility] May 09, 2019 03:56 PM VA-TOBACCO QUIT 5 TO < 15 YRS [facility] Encounter Notes: All associated encounter notes This section contains the clinical notes associated to the Encounter. Date/Time Encounter Note(s) Provider Source Jun 19, 2020 11:41 PRIMARY CARE NOTE: TRINH ZUNIGA [facility] LOCAL TITLE: Primary Care Clinic Note STANDARD TITLE: PRIMARY CARE NOTE DATE OF NOTE: JUN 19, 2020@11:41 ENTRY DATE: JUN 19, 2020@11:41:03 AUTHOR: TRINH ZUNIGA EXP COSIGNER: URGENCY: STATUS: COMPLETED Primary Care Clinic Note Has ADDENDA 69 year old with a PMH of: HLD, SUBJECTIVE: cc: here for annual exam HPI: [facility] PCP: Dr. Glynn Farris MD [facility]: [facility] Vertigo -1 episode over the last year -first episode he has every had -treated at [facility] Neurology, due to concern on CT scan -was unable to walk with eyes open, could walk w ith eyes closed -given a short script of meclizine hasn't used r ecently Ear Infections -treated with abx about 3 months ago -combination steroid and abx ear drop -no issues since -Denies any hearing changes Bilateral Carpal Tunnel -uses splints at night--> has helped a lot -has intermittent tingling in hands more of an i ssue when he isn't active -no interest in surgery at this time STANLEY -been on c-pap a long time -reports compliance -no acute concerns today Otherwise Pt is feeling healthy and well today w ith no acute concerns. Review of Systems: GEN: Denies excessive fatigue, sleep disturbance , snoring. Reports good appetite. ENDO: Denies significant weight changes EENT: Denies ear pain, sore throat; denies visio n, hearing changes CV: Denies chest pain, MEYER, irregular HR, palpit ations PULM: Denies SOB, difficulty breathing, cough GI: Denies n/v, diarrhea, constipation, blood in stool : Denies urinary frequency , urgency, hematuria Nocturia x1-2, Sexually Active [Y], changes in libido, difficulty/changes with erections. MSK: Denies joint pain, myalgias NEURO: Denies headaches, weakness, change in gai t/balance EXT: Denies edema, pain SKIN: Denies new or changed lesions PSYCH: Feels safe at home. Reports anxie ty [-], feeling down [-], depressed or hopeless [-]. Denies loss of interest or pleasur e in previously enjoyable activities Social History: Tobacco: former quit 6-7 years ago. 20+ pack yea r history Alcohol: 1-2 drinks when he goes out a few times a month or less Rec drugs: none Caffeine: 3 cups of coffee in the morning Activity: uses elliptical 5 minutes almost every morning, uses to help maintain his blood sugars Diet: Likes meats and potatoes, some vegetables. Breakfast: decent Lunch: snack or skips Supper: largest meal of the day Work: Retired Relationship: in 2009, remarried 1 year ago good relationship Safety: seatbelt [+] smoke/CO alarm [+] gun [-] helmet [+] History: [employer] 1971- [employer]dn[employer], Fuel/Electrical/Wheel/Track No Combat PMH: Active problems - Computerized Problem List is t he source for the followin. Asymmetrical sensorineural hearing loss 2. Sleep apnea 3. Bladder cancer 4. History of cholecystectomy 5. Hyperlipidemia ([facility] [id number]) 6. GERD - Gastro-Esophageal Reflux Disease ([facility] [id number]) 7. COPD - Chronic Obstructive Pulmonary Disease ([facility] [id number]) 8. Diabetes Mellitus Type 2 ([facility] [id number]) MEDS: Active Outpatient Medications (excluding Supplie s): Pending Outpatient Medications Status 1) ASCORBIC ACID 500MG TAB TAKE ONE TABLET BY MOUTH PENDING EVERY DAY VITAMIN/NUTRITION SUPPLEMENT 2) ASPIRIN 81MG EC TAB TAKE ONE TABLET BY MOUT H EVERY PENDING DAY TO PREVENT STROKE/HEART ATTACK OR FOR PAIN/SWELLING/INFLAMMATION 3) ATORVASTATIN CALCIUM 20MG TAB TAKE ONE TABL ET BY PENDING MOUTH AT BEDTIME 4) CETIRIZINE HCL 10MG TAB TAKE ONE TABLET BY MOUTH PENDING EVERY DAY NEEDED FOR ALLERGIES 5) CHOLECALCIF 50MCG (D3-2,000UNIT) TAB TAKE O NE TABLET PENDING BY MOUTH EVERY DAY 6) CYANOCOBALAMIN 1000MCG TAB TAKE ONE TABLET BY MOUTH PENDING EVERY DAY 7) FISH OIL 1000MG (500MG DHA/EPA) CAP TAKE ON E CAPSULE PENDING BY MOUTH TWICE A DAY 8) GLYCOPYRROLATE 1MG TAB TAKE 0.5MG BY MOUTH THREE PENDING TIMES A DAY FOR EXCESSIVE SALIVATION 9) OMEPRAZOLE 20MG EC CAP TAKE ONE CAPSULE BY MOUTH PENDING EVERY MORNING BEFORE BREAKFAST FOR STOMAC H ACID (TAKE HALF-HOUR BEFORE A MEAL(S) Active Non-VA Medications Status 1) Non-VA OTHER NON-VA MEDICATION MISCELLANEOU S LUTEIN ACTIVE 40MG EVERY DAY 10 Total Medications ALLERGIES: Patient has answered NKA OBJECTIVE: T: 97.3 F [36.3 C] (06/19/2020 11:21) BP:127/68 (06/19/2020 11:21) HR:57 (06/19/2020 11:21) SpO2: 06/19/20 @ 1121 PULSE OXIMETRY: 98 BMI: BODY MASS INDEX - JUN 19, 2020@11:21:33 2 9.9 WT: 202 lb. [91.8 kg] (06/19/2020 11:21) HT: 69 in [175.3 cm] (06/19/2020 11:21) GEN: Well-appearing, male in no apparent distres s. ENT: hearing intact, TMs normal NECK: supple. Thyroid normal. CV: RRR S1 S2 normal, no murmurs, rubs or gallop s CHEST: CTA bilateral, no crackles or wheezes ABD: BS normal, soft, nontender, no masses, no h epatosplenomegaly EXT: no edema; 2+ palpable pulses bilateral radi al and posterior tibialis MSK: Coordinated gait, bilateral UE and LE proxi mal and distal strength 5/5 NEURO: Alert and oriented, DTRs 2+ bilateral bic eps, triceps, patellar, and Achilles LYMPH: no lymphadenopathy PSYCH: Appropriate affect and demeanor, normal s peech pattern Labs/Tests: urine microalbumin ordered ASSESSMENT/PLAN: 1. Annual Exam without Abnormal findings -Medications reviewed and updated -Will request labs and blood work from Geoffrey Farris office -Low dose CT for lung cancer and AAA sc reening ordered through CC -Urine Microalbumin ordered today -Diabetic foot exam negative Reviewed: Medication/treatment benefits/risks/si de effects/monitoring Preventive/Health Maintenance: diet/exercise dis cussed Immunizations: reports up to date, will request from Dual [facility] PCP RTC: 1 year for annual exam Reminders: Tobacco Use Screening: The patient is a former tobacco user. The patient quit fifteen or more years ago . Diabetic Eye Exam: Diabetic Eye Exam already scheduled insi de/outside VA, or patient already in eye clinic recall. Hemoglobin A1C: Patient declines Hemoglobin A1C testing at t his time. DM Nephropathy Screening: The following patient is a Diabeti c and has been screened or treated for Nephropathy as follows: Urine Microalbumin lab test ordered. HIV Screening: Patient has been offered HIV testing and has declined. I have explained that HIV testing is recommended for all adul ts, even if all risk factors are absent. The patient was educated on the risk of delayed screening. My Fixed - Parking Tickets Education: The patient has access or uses the internet. The patient is not registered for [email or web address]. Medication Reconciliation: Outpatient: Has the patient been taking medications as documented in the EMLR? YES: The patient has been taking medicatio ns as documented in the EMLR. Essential Medication List for Review used to complete this medication reconciliation. INCLUDED IN THIS LIST: Alphabetical list o f active outpatient prescriptions dispensed from this [place] (loca ) and dispensed from another [place] or [facility] facility (remote) as well as inp atient orders (local, pending and active), local clinic medications, loc ally documented non-VA medications, and local prescriptions that have or been discontinued in the past 90 days. - All changes in medic ations, including all non-VA/Herbal/OTC medications were entered into CPRS. - If there were any medications the patien t should no longer take, they were discontinued. - The patient/caregiver was instructed to update this list, discard old lists, and take this list to the next appo intment, whether with a VA or non-VA provider. Suicide Screen: C-SSRS Screening [place]-Suicide Severity Rating Scale (C- SSRS Screener) 1. Over the past month, have you wished you were or wished you could go to sleep and not wake up? No 2. Over the past month, have you had any actual thoughts of killing yourself? No 3. Over the past month, have you been th inking about how you might do this? Response not required due to responses t o other questions. 4. Over the past month, have you had the se thoughts and had some intention of acting on them? Response not required due to responses t o other questions. 5. Over the past month, have you started to work out or worked out the details of how to kill yourself? Response not required due to responses t o other questions. 6. If yes, at any time in the past month did you intend to carry out this plan? Response not required due to responses t o other questions. 7. In your lifetime, have you ever done anything, started to do anything, or prepared to do anything to end your life (for example, collected pills, obtained a gun, gave away valuables, went to the roof but didn't jump)? No 8. If YES, was this within the past 3 mo nths? Response not required due to responses t o other questions. DM/PVD/ESRD Foot Exam: Patient had a complete visual exam ination of the feet at this encounter. Result of Exam: Normal Patient's feet were ex amined for presence of dorsalis pedis and posterior tibial pulses. Results of Exam: Slightly Diminished Patient had a monofilament examination of sensation in feet at this encounter. Results of Exam: Normal The patient's foot risk was calculated, an d the patient was educated on proper footwear and foot care. Please calculate the patient's Foot Risk S core (FRS) - 1 Required: (RATE the foot with the HIGHEST risk!) 1 = LOW RISK /kevan Zuniga DNP, CHELSEY Nurse Practitioner Signed: 06/19/2020 12:26 06/19/2020 ADDENDUM STATUS: COMPLETED Please request last office n ote, labs and immunization list from [facility] PCP: Dr. Glynn Farris MD [facility]: [facility]. Thanks! /kevan Zuniga DNP, CHELSEY Nurse Practitioner Signed: 06/19/2020 12:27 Receipt Acknowledged By: 06/24/2020 09:06 /landon/ DLELA HAJI * AWAITING SIGNATURE * MARIBEL RANKIN * AWAITING SIGNATURE * HAILEY KEATING * AWAITING SIGNATURE * GONZALEZ PRESTON 06/19/2020 ADDENDUM STATUS: COMPLETED records are requested /kevan HAJI Signed: 06/19/2020 12:40 06/23/2020 ADDENDUM STATUS: COMPLETED records requested /kevan KEATING RN Signed: 06/23/2020 15:43 06/24/2020 ADDENDUM STATUS: COMPLETED reecords are received and forwarded to provider /kevan HAJI Signed: 06/24/2020 09:06 Jun 19, 2020 11:25 PRIMARY CARE ANNUAL EVALUATION NOTE: Geoffrey ZIMMERMAN [facility] TITLE: Preventive Health Annual Review STANDARD TITLE: PRIMARY CARE ANNUAL EVALUATION N OTE DATE OF NOTE: JUN 19, 2020@11:25 ENTRY DATE: JUN 19, 2020@11:25:26 AUTHOR: ALEXY ZIMMERMAN EXP COSIGNER: URGENCY: STATUS: COMPLETED Advance Directive Screen: Patient does not have a completed advanced directive on file. Patient is not interested in completing one at this t jazmín. The patient received education about advan ce directives as well as written notification of his/her rights. Nick guevara has the form at home Influenza Immunization: The patient has received the seasonal infl uenza vaccine for the current season at another location. Date: April, Exact date is unkn own Location: [facility] in [place], [place] Homelessness/Food Insecurity Screen: In the past 2 months, have you been living in stable housing that you own, rent, or stay in as part of a househo ? Yes - Living in stable housing. Are you worried or c oncerned that in the next 2 months you may NOT have stable housing that you own, rent, or st ay in as part of a household? No - Not worried about housing near [facility] In the past three months did you ever run out of food and you were not able to access more food or have the money to buy more food? No - No Food shortage Alcohol Use Screen (AUDIT-C): Alcohol Screen: SCREEN FOR ALCOHOL (AUDIT-C) An alcohol screening test (AUDIT-C ) was negative (score=1). 1. How often did you have a drink containing alcohol in the past year? Monthly or less 2. How many drinks containing alco hol did you have on a typical day when you were drinking in the past year? One or two drinks 3. How often did you have six or m ore drinks on one occasion in the past year? Never Depression Screening: Perform PHQ-2 A PHQ-2 screen was performed. The sc ore was 0 which is a negative screen for depression. Over the past two weeks, how often h ave you been bothered by the following problems? 1. Little interest or pleasure in do ing things Not at all 2. Feeling down, depressed, or hopel ess Not at all /landon/ ALEXY ZIMMERMAN Health Shipping Supervisor Signed: 06/19/2020 11:28
--- OUTSIDE RECORDS SUMMARY | 2020-06-25 01:25 | XMS_ITS ---
:1950 Author Organization [facility] Address [address] [place] [address] Care Team Providers Name Role Phone Reese Peralta Unavailable Unavailable PROBLEMS ALLERGIES No Known Allergies ENCOUNTERS IMMUNIZATIONS No Known Immunizations SOCIAL HISTORY REASON FOR REFERRAL FUNCTIONAL STATUS PLAN OF CARE VITAL SIGNS MEDICATIONS PROCEDURES No Known procedures RESULTS REASON FOR VISIT Insurance Providers MEDICAL (GENERAL) HISTORY
--- OUTSIDE RECORDS SUMMARY | 2020-06-25 01:25 | XMS_ITS | Encounter Summary ---
:1950 Author Organization [facility] Address [address] [place] [address] Support Name Relationship Address Phone HINA Unavailable [address] [facility] [phone] [address] [place] [address] HINA Unavailable [address] [facility] [phone] [address] [place] [address] Insurance Providers: All historical and current Section [...] Cornell EXPRESS PRESCRIPT TRICA Dec 02, DODA [id number] [phone] CARLTON SANTAMARIA PATIENT SCRIPTS ION RE 2017 44 4 AIN [place]OD[place] MEDICARE MEDICARE PART Dec 02, PART A [id number] CARLTON SANTAMARIAL PATIENT (WNR) (M) A 2018 [id number] 2 AIN MEDICARE MEDICARE PART Dec 02, PART B [id number] CARLTON SANTAMARIA ISYaa PATIENT (WNR) (M) B 2018 KQ14 2 AIN -FO TRICA Dec 02, 063 [id number] Chi SANTAMARIA HISL PATIENT R-LIFE RE 2018 [id number] AIN Selected Encounter This section includes the information on record at VA for the Encounter. Date/Time Encounter Type Encounter Description Reason Provider Source Apr 03, 2020 12:00 Outpatient Encounter EVENT (HISTORICAL) AM IHE Encounter Template Text not used by VA Plan of Treatment: Future Appointments (+ 6 months) and Future Tests (+/- 45 days) The Plan of Treatment section includes future care activities for the patient from all [place] treatment facilities. This section includes future appointments and future orders which are active, pending or scheduled.Future Appointments This section includes appointments that were scheduled to occur 6 months from the date of the Encounter, up to a maximum of 20 appointments. The data comes from all [facility] hospital. Appointment Date/Time Appointment Type Appointment Facili ty Name Jun 19, 2020 11:30 AM AMBULATORY - MEDICINE MITZI KOENIG [facility] Aug 11, 2020 08:30 AM AMBULATORY - REHAB MEDICINE MITZI Hogan [facility] Immunizations: All administered on the encounter date This section contains immunizations associated to the Encounter. Immunization Series Date Issued Reaction Comments INFLUENZA, UNSPECIFIED FORMULATION Apr 03, 2020
--- OUTSIDE RECORDS SUMMARY | 2020-06-25 01:25 | XMS_ITS | Encounter Summary ---
:1950 Author Organization [facility] Address [address] [place] [id number] Support Name Relationship Address Phone HINA Unavailable [address] [facility] [place] [address] HINA Unavailable [address] [facility] [place] [address] Insurance Providers: All historical and current Section [...] Cornell EXPRESS PRESCRIPT TRICA Dec 02, DODA [id number] [phone] CARLTON SANTAMARIA PATIENT SCRIPTS ION RE 2017 44 4 AIN [place] MEDICARE MEDICARE PART Dec 02, PART A [id number] CARLTON SANTAMARAI ISL PATIENT (WNR) (M) A 2018 KQ14 2 AIN MEDICARE MEDICARE PART Dec 02, PART B [id number] CARLTON SANTAMARIA ISYaa PATIENT (WNR) (M) B 2018 KQ14 2 AIN -FO TRICA Dec 02, 906 [id number] Chi SANTAMARIA HISL PATIENT R-LIFE RE 2018 [id number] AIN Selected Encounter This section includes the information on record at [place] for the Encounter. Date/Time Encounter Type Encounter Reason Provider Source Description Mar 06, 2020 Outpatient OPTOMETRY ICD-10-CM Z46.0 CELI KHAN 11:00 AM Encounter Encounter for R fit/adjst of spectacles and contact lenses with Provider Comments: Encounter for Fitting and Adjustment of Spectacles and Contact Lenses IHE Encounter Template Text not used by [place] Assessments - Encounter Diagnoses This section includes the primary and secondary diagnoses documented forthe Encounter. Date/Time Primary/Secondary Diagnosis Name Provider Source Diagnosis Mar 07, 2020 PRIMARY Encounter for OIL AND GAS PRINCIPAL MITZI KOENIG 09:39 AM fit/adjst of [facility] spectacles and contact lenses Plan of Treatment: Future Appointments (+ 6 months) and Future Tests (+/- 45 days) The Plan of Treatment section includes future care activities for the patient from all [place] treatment facilities. This section includes future appointments and future orders which are active, pending or scheduled.Future Appointments This section includes appointments that were scheduled to occur 6 months from the date of the Encounter, up to a maximum of 20 appointments. The [facility] Appointment Date/Time Appointment Type Appointment Facili ty Name Jun 19, 2020 11:30 AM AMBULATORY - MEDICINE MITZI KOENIG [facility] Aug 11, 2020 08:30 AM AMBULATORY - REHAB MEDICINE MITZI CARMEN Hogan [facility] Encounter Notes: All associated encounter notes This section contains the clinical notes associated to the Encounter. Date/Time Encounter Note(s) Provider Source Mar 07, 2020 09:38 AM ADMINISTRATIVE NOTE: CELI KHAN MITZI KOENIG [facility] LOCAL TITLE: Board Certified Music Therapist Administrative Note [facility] STANDARD TITLE: ADMINISTRATIVE NOTE DATE OF NOTE: MAR 07, 2020@09:38 ENTRY DATE: MAR 07, 2020@09:38:34 AUTHOR: CELI KHAN EXP COSIGNER: URGENCY: STATUS: COMPLETED Sentinel was in to be fit with new bifocal eyegla sses ([id number]), which will be mailed to the 's home address in approxim ately three weeks. was informed that he or she may return t o the drop in clinic for fittings, repairs and adjustments as needed. /landon/ CELI KHAN electrical assembly technician Signed: 03/07/2020 09:39
--- OUTSIDE RECORDS SUMMARY | 2020-06-25 01:25 | XMS_ITS | Encounter Summary ---
:1950 Author Organization [facility] Address [address] [place] [id number] Support Name Relationship Address Phone HINA Unavailable [address] [facility] [place] [address] HINA Unavailable [address] [facility] [place] [address] Insurance Providers: All historical and current Section [...] Cornell EXPRESS PRESCRIPT TRICA Dec 02, DODA [id number] [phone] CARLTON SANTAMARIA PATIENT SCRIPTS ION RE 2018 44 4 AIN [place] MEDICARE MEDICARE PART Dec 02, PART A [id number] CARLTON SANTAMARIAL PATIENT (WNR) (M) A 2018 [id number] AIN MEDICARE MEDICARE PART Dec 02, PART B [id number] CARLTON SANTAMARIA PATIENT (WNR) (M) B 2018 [id number] 2 AIN -FO TRICA Dec 02, 916 [id number] [phone] Chi SANTAMARIA HISL PATIENT R-LIFE RE 2018 [id number] AIN Selected Encounter This section includes the information on record at [place] for the Encounter. Date/Time Encounter Type Encounter Reason Provider Source Description Aug 09, 2019 Outpatient AUDIOLOGY ICD-10-CM Z46.1 DEVIN DRUMMOND 08:30 AM Encounter Encounter for A fitting and adjustment of hearing aid with Provider Comments: Encounter for Fitting and Adjustment of Hearing Aid IHE Encounter Template Text not used by [place] Assessments - Encounter Diagnoses This section includes the primary and secondary diagnoses documented forthe Encounter. Date/Time Primary/Secondary Diagnosis Name Provider Source Diagnosis Aug 09, 2019 [facility] and CBOC adjustment of hearing aid Aug 09, 2019 SECONDARY [facility] AM hearing loss, CBOC bilateral Plan of Treatment: Future Appointments [...] appointments. The [facility] [place] [facility] Appointment Date/Time Appointment Type Appointment Facili ty Name Aug 31, 2019 10:00 AM [facility] Sep 11, 2019 12:00 PM [facility] [place] [facility] Sep 11, 2019 01:00 PM [facility] [place] [facility] [facility] Social History: Smoking Status [...] [place]-TOBACCO QUIT 5 TO < 15 YRS [facility] Tobacco Use History This section includes a history of the smoking, or tobacco-related health factors, that were collected on or before the date of the Encounter. The data comes from the [place] facility where the Encounter took place. Date/Time Smoking Status/Tobacco Use Comment [facility] May 09, 2019 03[facility] Encounter Notes: All associated encounter notes This section contains the clinical notes associated to the Encounter. Date/Time Encounter Note(s) Provider Source Aug 09, 2019 09:10 AM AUDIOLOGY NOTE: DEVIN DRUMMOND [facility] LOCAL TITLE: Audiology Note STANDARD TITLE: AUDIOLOGY NOTE DATE OF NOTE: AUG 09, 2019@09:10 ENTRY DATE: AUG 09, 2019@09:10:51 AUTHOR: DEVIN DRUMMOND COSIGNER: URGENCY: STATUS: COMPLETED S: The patient has been diag nosed with hearing loss and was scheduled today for a hearing aid fitting appointment. See the audio logical evaluation note for a full report of the patient's history and d escription of hearing loss. PREVIOUS HEARING AID INFORMATION: None HEARING AID INFORMATION: PROOF CARRIER/MODEL: OTICON OPN S 1 MINIRITE -R CONFERENCE ORGANIZER: size 2 85 dB receivers DOME/EARMOLD: 8mm open domes WAX PROTECTION SYSTEM: ProWax MF BATTERY SIZE: Rechargeable SERIAL NUMBERS: Right: [id number] Left: [id number] WARRANTY EXPIRES: 08/16/22 TRIAL PERIOD EXPIRES: 01/14/20 WIRELESS ACCESSORIES: None PROGRAMMING/SETTINGS: The hearing aids were programmed to the parking cashier's proprietary s oftware. Real ear / speech mapping measurements for soft, average and loud speech inputs wit h NAL-NL2 and targets matched. MPO did not exceed estimated UCL. Th e responded well to the subjective settings and reported good physical fit. Programs: P1= Open Sound Navigator Target Gain: Adaptation level 3 Auto-Acclimatization: Off Volume: Enabled Memory button: Enabled PROGNOSIS FOR AID USE- Good PRECAUTIONS- Counseled on importance of consistent use in order to adapt to sounds and amplification. He expressed understan ding. ADDITIONAL SUPPLIES ISSUED/OREDERED: None -Counseled regarding hearing aid use, care, VA procedures for repairs, automatic telepho ne response, automatic microphones, alert tones and trial period with hearing aids. - Able to successfully insert and remove the hea ring aids. - Given the VA hearing aid handbook. - Discussed realistic expectations and benefits/ limitations of hearing aids. SHORT TERM GOALS: practice insertion/removal of the hearing aid(s) and charging batteries; practice using the telephone with the hearing aid(s), practice using volume control and/or program but ton on the hearing aid(s) if applicable; practice using communication strateg ies to help optimize audibility and understanding SHELTER GOALS: use hearing aid(s)/wireless accessories in all safe listening situations consistently (i.e., typical ly 10-12 hours per day) PROCEDURES: Otoscopy Real-Ear Measures-fitting two devices Analysis of REM computer data in selection/ fitting of device Supplies Issued: cleaning tools, cases, ins tructions Pt education materials issued/discussed First-time user hearing aid orientation IOI-MCMANUS outcome measure completed and mailed to patient P: [place] would like to return as needed. /landon/ Milli NUR Software Tools Developer Signed: 08/09/2019 09:13
--- NOTE | 2020-06-25 15:08 | DI.CTLCSR_ITS ---
EXAM: CT CHEST LUNG CANCER SCREEN CLINICAL HISTORY: [id number],SCREENING FOR LUNG CA,FORMER SMOKER,Z87.891 TECHNIQUE: Imaging Protocol: Axial computed tomography images with coronal and sagittal reformatted images were created and reviewed COMPARISON: CT ABD/PELVIS WO W CONTRAST from 03/02/2012 FINDINGS: Tracheobronchial tree: Patent where visualized. Mediastinum and Alisha: No dominant adenopathy or fluid collection. Pulmonary parenchyma: No consolidation or dominant measurable mass. No architectural distortion. Scar ring in the left upper lobe. Dependent atelectasis in the lung bases. Lung Nodules: None. Pleura: No effusion or pneumothorax. Heart: The heart is not dilated. No coronary artery calcifications are seen. No pericardial effusion. Aorta: Thoracic aorta non-dilated.Atherosclerosis. Upper abdomen: Status post cholecystectomy. Bones: Degenerative changes are present. Soft Tissues: Unremarkable. IMPRESSION: No pulmonary nodules. Lung RADS Cat 1 - Negative: No nodules and definitely benign nodules Lung-RADS 1.0 CATEGORIES: Category 0 - Prior chest CT exam(s) being located for comparison. Category 1 - Annual screening in 12 months. No nodules or definitely benign nodules. Category 2 - Annual screening in 12 months. Benign appearance. Nodules with low likelihood of becomin g active cancer. Category 3 - 6-month follow-up. Probably benign. Short-term follow-up suggested. Nodules with low lik elihood of becoming active cancer. Category 4A - 3-month follow-up and CT/PET if >8 mm in size. Suspicious finding. Findings which requi re additional testing. Category 4B - Findings which require additional testing and tissue sampling. Suspicious finding. C Added to Any of the Above - History of prior lung cancer screening. S Added to Any of the Above - Significant unexpected other finding. RADIATION DOSE DELIVERED: 78.17mGy.cm Total DLP DATA REPOSITORY: All CT scans at this facility are submitted to the National Radiology Data Registry (NRDR) Dose Index Registry (DIR) with the [employer] (ACR). RADIATION OPTIMIZATION: All CT scans at this facility use at least one of these dose optimization te chniques: automated exposure control; mA and/or kV adjustment per patient size (includes targeted exa ms where dose is matched to clinical indication); or iterative reconstruction.
== END 2020-06-25 01:42 ==
PROVIDERS: PCP Family Medicine; Visit Provider Nurse Practitioner Adult Health
DX: Z87.891 Personal history of nicotine dependence (principal)
CPT/HCPCS: G0297

== ENCOUNTER 2020-12-01 14:43 | Outpatient (REF) | payer MEDICARE, OTHER, SELFPAY | END 2020-12-01 14:44 | disposition home or self-care (01) | LOC: NCHCN 14:43 | PROVIDERS: PCP Family Medicine; Visit Provider Nurse Practitioner Family | DX: H60.391 Other infective otitis externa, right ear (principal); L08.89 Other specified local infections of the skin and subcutaneous tissue | CPT/HCPCS: 87070; 87205 ==

== ENCOUNTER → 2020-12-02 10:48 | Outpatient (BNVA) | payer MEDICARE, OTHER, SELFPAY | PROVIDERS: PCP Family Medicine; Referring Provider Family Medicine; Visit Provider Urology | DX: C67.9 Malignant neoplasm of bladder, unspecified (principal) | CPT/HCPCS: 52000; 81003; 99213 ==

== ENCOUNTER 2021-05-06 14:16 | Outpatient (REF) | payer MEDICARE, OTHER, SELFPAY ==
[2021-05-06 16:40] LABS: Anion Gap 7.3 mmol/L (3-11); BUN 15 mg/dL (7-18); CO2 30.7 mmol/L (21.0-32.0); Calcium 9.1 mg/dL (8.5-10.1); Chloride 102 mmol/L (98-107); Glucose 128 mg/dL (74-106); Potassium 4.7 mmol/L (3.5-5.1); Sodium 140 mmol/L (136-145); Vitamin B12 592 pg/mL (193-986)
== END 2021-05-06 14:17 | disposition home or self-care (01) ==
LOC: NCHCN 14:16
PROVIDERS: PCP Family Medicine; Visit Provider Family Medicine
DX: E53.8 Deficiency of other specified B group vitamins (principal); E11.9 Type 2 diabetes mellitus without complications
CPT/HCPCS: 80048; 82607

== ENCOUNTER 2021-07-29 19:17 | Outpatient (REF) | payer MEDICARE, SELFPAY ==
[2021-07-29 19:30] LABS: Abs Immature Grans 0.02 10^3/uL (0.0-0.06); Absolute Basophil Count 0.02 10^3/uL (0.0-0.2); Absolute Eosinophil Count 0.17 10^3/uL (0.0-0.7); Absolute Lymphocyte Count 2.33 10^3/uL (1.2-3.4); Absolute Monocyte Count 0.32 10^3/uL (0.1-0.8); Basophils % 0.4; Eosinophils % 3.4; HCT 39.1 % (40.0-50.0); Immature Grans % 0.4; MCH 31.6 pg (27.0-33.0); MCHC 33.2 % (32.0-36.0); MCV 94.9 fL (80-95); MPV 10.4 fL (8.0-11.0); Monocytes % 6.5; Neutrophils % 42.3; Nucleated RBC 0 %; Platelet Count 182 10^3/uL (130-400); RBC 4.12 10^6/uL (4.36-5.78); RDW 12.1 % (11.8-14.1); RDW-SD 42.4 fL; WBC 4.96 10^3/uL (4.4-10.8)
[2021-07-29 19:32] LABS: ESR 4 mm/hr (0-20)
[2021-07-29 19:41] LABS: ALT 29 U/L (16-63); AST 16 U/L (15-37); Alkaline Phosphatase 51 U/L (46-116); Anion Gap 8.9 mmol/L (3-11); BUN 13 mg/dL (7-18); Bilirubin, Total 0.6 mg/dL (0.2-1.0); CO2 30.1 mmol/L (21.0-32.0); CREATININE 1.1 mg/dL (0.70-1.30); Calcium 8.6 mg/dL (8.5-10.1); Chloride 100 mmol/L (98-107); Glucose 187 mg/dL (74-106); Potassium 3.8 mmol/L (3.5-5.1); Sodium 139 mmol/L (136-145)
== END 2021-07-29 19:18 | disposition home or self-care (01) ==
LOC: NCHCN 19:17
PROVIDERS: PCP Family Medicine; Visit Provider Family Medicine
DX: I10 Essential (primary) hypertension (principal); R59.1 Generalized enlarged lymph nodes
CPT/HCPCS: 80053; 85652; 85025

== ENCOUNTER 2021-08-19 01:57 | Outpatient (CLI) | payer MEDICARE, OTHER, SELFPAY ==
--- NOTE | 2021-08-19 07:30 | DI.US_ITS ---
Exam(s) US SOFT TISSUE EXTREMITY EXAM: US SOFT TISSUE EXTREMITY CLINICAL HISTORY: LYMPHADENOPATHY OF ARMPIT, R59.1. TECHNIQUE: Ultrasound was performed using standard protocol. COMPARISON: No exams were available for comparison FINDINGS: Sonographic assessment utilizing grayscale and color Doppler imaging was performed and targeted to th e area of clinical concern. Both axilla were evaluated sonographically. There are several lymph nodes seen in the axilla bilater ally. The lymph nodes are ovoid and hypoechoic with a vascular hyperechoic eccentric area. Sonograp hically, this is consistent with a benign-appearing lymph node. No other cystic or solid masses are seen in the axilla. The largest lymph node on the right measures 1.6 x 0.7 x 1.8 cm. The largest ly mph node on the left measures 1.7 x 0.8 x 2 cm. IMPRESSION: Bilateral sonographically benign-appearing lymph nodes. DATA REPOSITORY:
== END 2021-08-19 02:17 ==
PROVIDERS: PCP Family Medicine; Visit Provider Family Medicine
DX: R59.1 Generalized enlarged lymph nodes (principal)
CPT/HCPCS: 76881

== ENCOUNTER → 2021-12-08 08:43 | Outpatient (BNVA) | payer MEDICARE, OTHER, SELFPAY | PROVIDERS: PCP Family Medicine; Referring Provider Family Medicine; Visit Provider Urology | DX: C67.9 Malignant neoplasm of bladder, unspecified (principal) | CPT/HCPCS: 52000; 81003 ==

== ENCOUNTER 2021-12-11 10:23 | Outpatient (REF) | payer MEDICARE, OTHER, SELFPAY ==
[2021-12-11 11:18] LABS: Source Nasal/Nares
[2021-12-11 15:13] LABS: COVID-19 PCR Negative (Negative)
== END 2021-12-11 10:24 | disposition home or self-care (01) ==
LOC: LBN 10:23
PROVIDERS: PCP Family Medicine; Visit Provider Urology
DX: Z20.822 Contact with and (suspected) exposure to COVID-19 (principal); Z01.818 Encounter for other preprocedural examination
CPT/HCPCS: 87635; U0005

== ENCOUNTER 2021-12-14 08:25 | Day surgery (SDC) | payer MEDICARE, OTHER, SELFPAY ==
--- NOTE | 2021-12-14 06:29 | W.ANESPRE ---
General Info Date of Service Date Performed: 12/14/21 Height: 5 ft 9 in Weight: 88.904 kg Body Mass Index (BMI): 28.9 Surgical Procedure: Operation Date: 12/14/21 09:25 Proposed Procedure Side Surgeon p Cysto w/Transurethral Resection Bladder Tumor Hugh Marrufo MD s Bladder Installation- Mytomycin Hugh Marrufo MD Meds Allergies and Home Medications Allergies Allergy/AdvReac Type Severity Reaction Status Date / Time lisinopril AdvReac Mild Other (See Verified 12/14/21 08:41 Comment) Home Medication Medication Instructions Recorded omeprazole 20 mg capsule,delayed 20 mg PO DAILY ##14 01/06/14 release ascorbic acid (vitamin C) 1,000 mg 1,000 mg PO DAILY 12/31/15 tablet cetirizine 10 mg tablet 10 mg PO DAILY 12/31/15 omega-3 fatty acids-fish oil 300 1 ea PO DAILY 07/23/16 mg-1,000 mg capsule cholecalciferol (vitamin D3) 25 1,000 units PO DAILY 10/13/17 mcg (1,000 unit) tablet atorvastatin 20 mg tablet 20 mg PO DAILY 10/15/21 cyanocobalamin (vitamin B-12) 1,000 mcg PO DAILY 10/15/21 1,000 mcg capsule losartan 25 mg tablet 25 mg PO DAILY 10/15/21 Current Visit Medications: Current Medications Generic Name Dose Route Start Last Admin Trade Name Freq PRN Reason Stop Dose Admin Mitomycin 40 mg/ Sodium 0 mg 12/14/21 06:00 Chloride 40 ml BLADIN 12/14/21 18:00 DIRECTED RAMOS Ringer's Solution 1,000 mls @ 80 mls/hr 12/14/21 06:00 IV 01/10/22 23:59 INFUSION RAMOS Cefazolin Sodium/Dextrose 2 gm in 50 mls @ 100 mls/hr 12/14/21 06:00 Ancef Duplex IVPB 01/10/22 23:59 PREOP RAMOS IV Miscellaneous Supplies 1 each 12/14/21 06:00 Iv Access IV 01/10/22 23:59 DIRECTED RAMOS Sodium Chloride 0 ml 12/14/21 06:00 Normal Saline Flush 10 Ml Syr IV 01/10/22 23:59 PRN PRN Sodium Chloride 0 ml 12/14/21 06:00 Normal Saline 10 Ml Vial IJ 01/10/22 23:59 DIRECTED PRN Sterile Water 0 ml 12/14/21 06:00 Water,Injection,Sterile 10 Ml Vial IJ 01/10/22 23:59 DIRECTED PRN PFSH Active Problems Active Problems: Problem Status Onset Code Urothelial carcinoma of bladder C67.9 History of bladder cancer 12/12/15 Z85.51 Malignant neoplasm of urinary bladder 10/31/15 C67.9 Neoplasm of skin 06/10/14 D49.2 Screening for colon cancer Z12.11 STANLEY (obstructive sleep apnea) G47.33 COPD, mild J44.9 Medical History Medical History Bee sting allergy Carpal tunnel syndrome on both sides Dyslipidemia GERD (gastroesophageal reflux disease) HTN (hypertension) Hypertension Labyrinthine vestibulitis Lymphadenopathy Vitamin B 12 deficiency Tobacco Smoking/Tobacco Use Status: Former Tobacco Use Alcohol Alcohol Intake: current Alcohol intake frequency: a few times a month Substance Use Substance use: Never Substance use type: does not use Vital Signs and Lab Results Vital Signs Most Recent Vital Signs in EMR: Temp Pulse Resp BP Pulse Ox 36.6 C 51 L 18 147/85 H 99 12/14/21 08:48 12/14/21 08:48 12/14/21 08:48 12/14/21 08:48 12/14/21 08:48 Lab Results Blood Type / Crossmatch: No Data to Display Complete Blood Count: No Data to Display Complete Metabolic Panel: No Data to Display Liver Function Panel: No Data to Display Coagulation Panel: No Data to Display Cardiac Panel: No Data to Display Arterial Blood Gas: No Data to Display Venous Blood Gas: No Data to Display Pancreas Panel: No Data to Display Thyroid Panel: No Data to Display Infectious Disease: Coronavirus (COVID-19)(PCR) Negative (Negative) 12/11/21 10:00 Coronavirus 2019 Source Nasal/Nares 12/11/21 10:00 Blood Cultures: No Data to Display Toxicology Panel: No Data to Display Imaging and Studies Imaging and Studies Study information below may be from another EMR and interpreted by another provider. Please see original notes in EMR for more complete details. Pulmonary Function Summary: 2017: mild obstructive airway dz with no sig bronchodilator response. mild hyperinflation/air trapping. Anesthesia Assessment and Plan Anesthesia History Personal History: No History of Anesthesia Complications Family History: No Family History of Anesthesia Complications Exercise Tolerance Exercise Tolerance: Metabolic Equivalents>4 Cardiac & Pulmonary Exam Cardiac Exam: Normal S1/S2 Heart Sounds Pulmonary Exam: Clear Bilateral Breath Sounds Implantable Cardiac Device Does patient have a Pacemaker or an ICD?: No Airway Exam Known Difficult Airway: No Mallampati Class: 2 Mouth Opening: Normal (> 3cm) Thyromental Distance: Greater than 3 cm Neck Range of Motion: Full ROM Neck Circumference: Normal Teeth Condition: Normal Dentition and Removable Dentures/Plates Upper ASA Classification ASA Score: ASA 2 Emergency Case?: No NPO Status NPO Status: NPO Clears >2 hours, Solids >8 hours Anesthesia Plan Resuscitation Status: Full Code Anesthesia Technique: General Anesthesia Airway Planned: Natural Airway Monitors Used: Standard Monitors Preoperative Comments:: 70 yo male for cysto Sig PMHx: STANLEY (uses CPAP), COPD, HTN, GERD (well controlled), former smoker. Previous Anes: prop/midaz w/o airway.
[2021-12-14 08:48] VITALS: BP 147/85; PULSE 51; RESP 18; TEMP 36.6; O2SAT 99
[2021-12-14] MEDS: Lactated Ringers 1,000 ML 80 ML IV (09:01)
--- NOTE | 2021-12-14 09:12 | W.PM.HP.N ---
Date of service: 12/14/21 Time of Service: 09:12 Assessment and Plan Assessment and plan (1) Urothelial carcinoma of bladder: Status: Acute Assessment and plan: For cystoscopy, bladder biopsy, fulguration and instillation of Mitomycin-C into the bladder History of Present Illness History of Present Illness Chief Complaint: Bladder cancer Narrative: This is a 70-year-old gentleman who has a history of low-grade, noninvasive urothelial cell carcinoma of the bladder. He had a recent surveillance cystoscopy which showed a very small recurrence. He presents for cystoscopy, bladder biopsy and fulguration. We will plan on instilling Mitomycin-C into the bladder following the procedure. He is not having any gross hematuria. Review of Systems Constitutional Comments: No fevers or chills No vision change or dysphasia No diabetes or thyroid dysfunction Sleep apnea. No hemoptysis No chest pain or palpitations No hepatitis, ulcers, jaundice No seizures, strokes or peripheral neuropathy No bleeding disorders or anemia No gout PFSH All Active Problems (Updated 12/14/21 @ 09:17 by Hugh Marrufo MD) Urothelial carcinoma of bladder (Acute) Neoplasm of skin (Acute 06/10/14) Screening for colon cancer (Acute) STANLEY (obstructive sleep apnea) (Chronic) COPD, mild (Acute) Medical History (Updated 12/14/21 @ 09:17 by Hugh Marrufo MD) Bee sting allergy Carpal tunnel syndrome on both sides Dyslipidemia GERD (gastroesophageal reflux disease) HTN (hypertension) Hypertension Labyrinthine vestibulitis Lymphadenopathy Vitamin B 12 deficiency Social History Smoking/Tobacco Use Status: Former Tobacco Use Quit Date: 07/04/14 Smoking risk assessment performed?: Yes Alcohol Intake: current Alcohol Intake frequency: a few times a month Drug use: Never Substance use type: does not use Do you feel safe at home: Yes Do you feel safe in your relationship?: Yes Meds Allergies and Home Medications Allergies Allergy/AdvReac Type Severity Reaction Status Date / Time lisinopril AdvReac Mild Other (See Verified 12/14/21 08:41 Comment) Home Medications Medication Instructions Recorded Confirmed Type omeprazole 20 mg capsule,delayed 20 mg PO DAILY ##14 01/06/14 12/14/21 Rx release ascorbic acid (vitamin C) 1,000 mg 1,000 mg PO DAILY 12/31/15 12/14/21 History tablet cetirizine 10 mg tablet 10 mg PO DAILY 12/31/15 12/14/21 History omega-3 fatty acids-fish oil 300 1 ea PO DAILY 07/23/16 12/14/21 History mg-1,000 mg capsule cholecalciferol (vitamin D3) 25 1,000 units PO DAILY 10/13/17 12/14/21 History mcg (1,000 unit) tablet atorvastatin 20 mg tablet 20 mg PO DAILY 10/15/21 12/14/21 History cyanocobalamin (vitamin B-12) 1,000 mcg PO DAILY 10/15/21 12/14/21 History 1,000 mcg capsule losartan 25 mg tablet 25 mg PO DAILY 10/15/21 12/14/21 History Exam Const General: cooperative and no acute distress Neck Neck: supple Resp Effort & Inspection: normal respiratory effort Auscultation: clear to auscultation bilaterally Cardio Rate: regular rate Rhythm: regular rhythm GI Palpation: soft Neuro General: patient alert, patient awake and patient oriented x3 Results Last Vital Signs Temp 36.6 C 12/14/21 08:48 Pulse 51 L 12/14/21 08:48 Resp 18 12/14/21 08:48 BP 147/85 H 12/14/21 08:48 Pulse Ox 99 12/14/21 08:48
[2021-12-14 09:14] VITALS: BMI 28.9
[2021-12-14] MEDS: ceFAZolin 2 GM/50 ML BAG IVPB (09:43)
[2021-12-14] MEDS: Lidocaine 2% Jelly 6 ML SYR (09:52)
--- NOTE | 2021-12-14 10:00 | BLADDER_PTH ---
PATIENT: Antolin Calvert LOC: [facility] U#:[id number] AGE/SX: 70/M ROOM: RE12/14/[address]: Hugh Marrufo MD : 1950 BED: DIS: 12/14/2021 SPEC #: [id number] RECD: 12/14/21 12:17 STATUS: SHABNAM REQ #: [id number] SHYANNE: 12/14/21 10:[address]: Hugh Marrufo DEPT: Surgical Specimen RECD BY: Marina London ENTERED: 12/14/21 12:18 SP TYPE: Bladder OTHR DR: Glynn Farris Tissues: 1 - BLADDER BIOPSY Procedures: GROSS AND MICRO LEVEL 4 Comments:
[2021-12-14 10:11] VITALS: BP 115/79; PULSE 51; RESP 17; TEMP 36.5; O2SAT 94
--- NOTE | 2021-12-14 10:25 | W.PM.DSUDISC ---
Discharge Plan Disposition Patient Disposition: HOME Condition: Stable Discharge Details Reason For Visit: Bladder cancer Attending Provider: Hugh Marrufo Primary Care Provider: Glynn Farris Home Meds and New Rx's Prescriptions: No Action omega-3 fatty acids-fish oil 1 EACH capsule 1 ea PO DAILY losartan 25 mg tablet 25 mg PO DAILY cyanocobalamin (vitamin B-12) 1,000 mcg capsule 1,000 mcg PO DAILY atorvastatin 20 mg tablet 20 mg PO DAILY omeprazole 20 MG capsule,delayed release(DR/EC) 20 mg PO DAILY Qty: 14 1RF ascorbic acid (vitamin C) 1,000 MG tablet 1,000 mg PO DAILY cetirizine 10 MG tablet 10 mg PO DAILY cholecalciferol (vitamin D3) 1,000 UNITS tablet 1,000 units PO DAILY Discharge Instructions Additional Instructions: Leave cabral clamped with Mitomycin c in bladder for 1 to 2 hours - then unclamp, drain bladder and remove cabral (Mitomycin C instilled @ 10:25) Unclamp sooner prn discomfort Followup 1 to 2 weeks for pathology results Activity:: Activity as Tolerated Shower/Bathe:: 24 hours Diet:: As Tolerated Discharge Orders Discharge Orders: Discharge Order (Routine); Ordered 12/14/21 Ordered By: Hugh Marrufo DS: Diagnosis Discharge Diagnosis (1) Urothelial carcinoma of bladder: Status: Acute
--- NOTE | 2021-12-14 10:29 | ROE_ITS ---
Date of service: 12/14/21 Time of Service: 10:29 Operative Note Operative Note DATE OF PROCEDURE: 12/14/21 PRE-OP DIAGNOSIS: Bladder cancer PROCEDURE: Cystoscopy bladder biopsy, fulguration of the biopsy site, instillation of Mitomycin-C into the bladder SURGEON: Hugh Marrufo ANESTHESIA TYPE: General:No Airway Refer to Anesthesia Record ESTIMATED BLOOD LOSS: 0 PATHOLOGY: other (Bladder biopsy) COMPLICATIONS: None Patient was transported to: same day Patient's condition: stable Implants: 16 [place] Osullivan catheter with 10 cc of sterile water in balloon Indications: This is a 70-year-old gentleman who has a history of low-grade, noninvasive urothelial cell carcinoma of the bladder. On his most recent surveillance cys toscopy, we found a very small papillary lesion on the posterior bladder wall. He presents for biopsy and fulguration of the papillary lesion followed by instillation of Mitomycin-C into the bladder. Findings: Less than 2 cm papillary lesion on right posterior bladder wall Procedure Description: The patient was given preoperative antibiotics and brought to the operating room on 12/14/2021. After successful induction of general anesthesia without intubation, he was placed in the dorsal lithotomy position. His genitalia was prepped and draped. 2% Xylocaine jelly was instilled into the urethra to act as a local anesthetic. A 22 [place] rigid cystoscope was passed through the urethra into the bladder. The urethra and bladder were inspected with a 30 degree lens. The pendulous, bulbar and membranous urethra appeared normal with no strictures. The prostatic urethra showed some lateral lobe enlargement with a small median lobe. The bladder neck was entered and the bladder mucosa was inspected. Both ureteral orifices appeared normal with no blood coming from either side. On the right posterior bladder wall, there was a small papillary lesion that measured less than 2 cm in largest dimensions. Using the cold cup biopsy forceps, the visible lesion was removed and sent to pathology for permanent section. I then went ahead and cauterized the biopsy site using bipolar cautery The biopsy site showed no active bleeding. I removed the cystoscope and passed a 16 [place] Osullivan catheter through the urethra into the bladder. The catheter balloon was inflated with 10 cc of sterile water. Once the bladder was drained, a vial containing 40 mg of Mitomycin-C mixed in 40 mL of saline was instilled into the catheter. The catheter was clamped to allow the Mitomycin-C to remain instilled into the bladder. The patient tolerated this procedure well with no complications. He was taken back to the day surgery unit in stable condition.
--- NOTE | 2021-12-14 10:30 | W.ANESPOSTOP ---
Postoperative Evaluation Date, Time and Location Date Performed: 12/14/21 Time Performed: 10:30 Patient Location: Day Surgery Unit Vital Signs Most Recent Imported Vital Signs: Most Recent Vital Signs Temp Pulse Resp BP Pulse Ox 36.6 C 51 L 18 147/85 H 99 12/14/21 08:48 12/14/21 08:48 12/14/21 08:48 12/14/21 08:48 12/14/21 08:48 Pain Score Most Recent Pain Score: Most Recent Pain Score Pain Level 0 12/14/21 08:48 Assessment Mental Status: Awake (Alert & Oriented to Patient Baseline) Airway and Respiratory Function: Patent airway with normal (patient baseline) respiratory exam Cardiovascular Function: Hemodynamically Stable Hydration Status: Adequately Hydrated Nausea & Vomiting: No Nausea or Vomiting Pain: Pt. Denies Any Pain Peripheral Nerve Block: Patient did not receive a nerve block
[2021-12-14 10:45] VITALS: BP 120/78; PULSE 51; RESP 18; TEMP 36.5; O2SAT 97
[2021-12-14] MEDS: Phenazopyridine 200 MG TAB PO (10:51)
== END 2021-12-14 12:36 | disposition home or self-care (01) ==
PROVIDERS: PCP Family Medicine; Visit Provider Urology
PROC: 0TBB8ZZ Excision of Bladder, Via Natural or Artificial Opening Endoscopic (ICD-10-PCS; CPT 52234; principal; 2021-12-14 09:15)
PROC: (CPT 52234; 2021-12-14 09:15)
DX: C67.4 Malignant neoplasm of posterior wall of bladder (principal); J44.9 Chronic obstructive pulmonary disease, unspecified; G47.33 Obstructive sleep apnea (adult) (pediatric); I10 Essential (primary) hypertension; N32.89 Other specified disorders of bladder
CPT/HCPCS: 52234; 51720; 88305; J0690; J1885; J2704

== ENCOUNTER → 2021-12-29 10:53 | Outpatient (BNVA) | payer MEDICARE, OTHER, SELFPAY | PROVIDERS: PCP Family Medicine; Referring Provider Family Medicine; Visit Provider Urology | DX: C67.9 Malignant neoplasm of bladder, unspecified (principal) | CPT/HCPCS: 99213 ==

== ENCOUNTER 2022-04-02 13:51 | Emergency (ER) | payer MEDICARE, OTHER, SELFPAY ==
[2022-04-02 13:54] VITALS: BP 164/69; PULSE 61; RESP 18; TEMP 37.3; O2SAT 98
--- NOTE | 2022-04-02 14:15 | DI.RAD_ITS ---
Exam(s) XR CHEST 2V PA LATERAL EXAM: XR CHEST 2V PA LATERAL CLINICAL HISTORY: fall, back pain TECHNIQUE: 2D digital imaging was performed. COMPARISON: CR CHEST 2 VIEWS PA,LAT from 01/06/2014 FINDINGS: The heart is not enlarged. The lungs are clear and well expanded. No pleural effusion seen. Mediastin al contours appear intact. IMPRESSION: Normal chest. RADIATION DOSE DELIVERED: Total DLP
--- NOTE | 2022-04-02 15:05 | DI.CT_ITS ---
Exam(s) CT CERVICAL SPINE WO CT THORACIC SPINE WO EXAM: CT CERVICAL SPINE WO CLINICAL HISTORY: fall, trauma TECHNIQUE: COMPARISON: CT CT CHEST LUNG CANCER SCREEN from 06/25/2020 FINDINGS: CT examination of the cervical spine and CT examination of thoracic spine are interpreted conjunction . Visualized portions of the brain appear intact. No cervical mass or adenopathy. No pretracheal flui d collection or mass. There are very prominent hypertrophic anterior endplate changes of the cervical spine from C 4 5 thro ugh C7-T1, moderate degenerative changes of facet joints noted as well. No central canal spinal sten osis. No evidence of acute fracture or dislocation. Visualized mediastinal structures appear intact. Lungs appear clear. There is minimal anterior vert ebral body compression fracture of L1 which appears to have been present on prior chest CT of 2019. There is no evidence of acute fracture or dislocation of the thoracic spine. IMPRESSION: No evidence of acute fracture of the cervical or thoracic spine. RADIATION DOSE DELIVERED: 532.8mGy.cm Total DLP !Error CTDIvol DATA REPOSITORY: All CT scans at this facility are submitted to the National Radiology Data Registry (NRDR) Dose Index Registry (DIR) with the [employer] (A[employer]). RADIATION OPTIMIZATION: All CT scans at this facility use at least one of these dose optimization te chniques: automated exposure control; mA and/or kV adjustment per patient size (includes targeted exa ms where dose is matched to clinical indication); or iterative reconstruction.
[2022-04-02 15:37] VITALS: BP 150/107; PULSE 62; RESP 16; TEMP 36.7; O2SAT 99
--- NOTE | 2022-04-02 15:43 | ED.GENADUL_ITS ---
Discharge Plan Disposition Patient Disposition: HOME Condition: Stable Discharge Details Clinical Impression: Contusion of back, Fall from ladder Primary Care Provider: Glynn Farris ED Provider: Darin Lacey Home Meds and New Rx's Prescriptions: Continued omega-3 fatty acids-fish oil 1 EACH capsule 1 ea PO DAILY losartan 25 mg tablet 25 mg PO DAILY cyanocobalamin (vitamin B-12) 1,000 mcg capsule 1,000 mcg PO DAILY atorvastatin 20 mg tablet 20 mg PO DAILY omeprazole 20 MG capsule,delayed release(DR/EC) 20 mg PO DAILY Qty: 14 1RF ascorbic acid (vitamin C) 1,000 MG tablet 1,000 mg PO DAILY cetirizine 10 MG tablet 10 mg PO DAILY cholecalciferol (vitamin D3) 1,000 UNITS tablet 1,000 units PO DAILY Discharge Instructions Instructions: Contusion in Adults (ED) Additional Instructions: Please contact your primary care physician to arrange follow-up. Return to the ER immediately for any worsening or new concerning symptoms. Referrals: Glynn Farris [Primary Care Provider] - Medical Decision Making 1716 --71-year-old male here after fall from ladder with trauma to his mid upper back. Considered fracture of the cervical and thoracic spine. CT of the cervical and thoracic spine was interpreted by radiology as negative. Chest x-ray was reviewed interpreted radiology as negative. Plan for discharge, usual and customary discharge instructions were reviewed with the patient HPI General Mode of arrival: ambulatory . Date/Time Provider Initiated Documentation: 04/02/22 14:16 . Limitations to Documentation: no limitations . Information obtained by: patient . HPI Narrative: 71yo m presents with chief complaint of back pain after fall from ladder today. Patient notes he fell from 10 foot ladder and struck another ladder as he fell impacting his back. He did not hit his head. He did not lose consciousness. Patient has no headache. He has no chest pain or abdominal pain. No neck pain. Pain is focal to mid upper back, moderate intensity, worse with bending over. No numbness or tingling. Related Data Home Medications Medication Instructions Recorded Confirmed omeprazole 20 mg capsule,delayed 20 mg PO DAILY ##14 01/06/14 04/02/22 release ascorbic acid (vitamin C) 1,000 mg 1,000 mg PO DAILY 12/31/15 04/02/22 tablet cetirizine 10 mg tablet 10 mg PO DAILY 12/31/15 04/02/22 omega-3 fatty acids-fish oil 300 1 ea PO DAILY 07/23/16 04/02/22 mg-1,000 mg capsule cholecalciferol (vitamin D3) 25 1,000 units PO DAILY 10/13/17 04/02/22 mcg (1,000 unit) tablet atorvastatin 20 mg tablet 20 mg PO DAILY 10/15/21 04/02/22 cyanocobalamin (vitamin B-12) 1,000 mcg PO DAILY 10/15/21 04/02/22 1,000 mcg capsule losartan 25 mg tablet 25 mg PO DAILY 10/15/21 04/02/22 Previous Rx's Medication Instructions Recorded omeprazole 20 mg capsule,delayed 20 mg PO DAILY ##14 01/06/14 release Allergies Allergy/AdvReac Type Severity Reaction Status Date / Time lisinopril AdvReac Mild Other (See Verified 04/02/22 13:59 Comment) General Stated Complaint: Trauma NORA: 3 Review of Systems All systems reviewed & are unremarkable except as noted in HPI and below Cardiovascular Cardiovascular: Denies chest pain and Denies dyspnea Respiratory Respiratory: Denies dyspnea PFSH All Active Problems (Updated 04/02/22 @ 15:43 by Darin Lacey MD) Contusion of back (Acute) Fall from ladder (Acute) Urothelial carcinoma of bladder (Acute) Neoplasm of skin (Acute 06/10/14) Screening for colon cancer (Acute) STANLEY (obstructive sleep apnea) (Chronic) COPD, mild (Acute) Medical History (Updated 04/02/22 @ 15:43 by Darin Lacey MD) Bee sting allergy Carpal tunnel syndrome on both sides Dyslipidemia GERD (gastroesophageal reflux disease) HTN (hypertension) Hypertension Labyrinthine vestibulitis Lymphadenopathy Vitamin B 12 deficiency Social History Smoking/Tobacco Use Status: Former Tobacco Use Quit Date: 07/04/14 Smoking risk assessment performed?: Yes Alcohol Intake: current Alcohol Intake frequency: a few times a month Drug use: Never Substance use type: does not use Do you feel safe at home: Yes Do you feel safe in your relationship?: Yes Exam Const General: cooperative and no acute distress HENMT Head: normocephalic and atraumatic Mouth: moist mucous membranes Eyes EOM: EOM intact bilaterally Neck Neck: trachea midline and supple Resp Auscultation: clear to auscultation bilaterally, no rales, no rhonchi and no wheezes Cardio Rate: regular rate and not tachycardic Rhythm: regular rhythm GI Palpation: soft, not firm, no guarding, no masses, not rigid and nontender Back/Spine/Pelvis Cervical Spine: No cervical spinal tenderness and No step off deformity Thoracic/Lumbar Spine: No paraspinal tenderness, thoracic spinal tenderness (t3) and No lumbar spinal tenderness Skin General skin exam: no rashes or lesions noted Neuro General: patient alert, patient awake, patient oriented x3 and tone normal Motor: strength 5/5 throughout Sensory Exam: no sensory deficits noted Extrem General: no edema Psych Appearance: grossly normal Mental Status: mental status grossly normal Speech and Movement: speech and movement normal Course Vital Signs Vital signs: Vital Signs Temperature 37.3 C 04/02/22 13:54 Pulse 61 04/02/22 13:54 Respiratory Rate 18 04/02/22 13:54 Blood Pressure 164/69 H 04/02/22 13:54 Pulse Oximetry 98 04/02/22 13:54 Temperature 37.3 C 04/02/22 13:54 Temperature Source Temporal Artery Scan 04/02/22 13:54 Pulse 61 04/02/22 13:54 Respiratory Rate 18 04/02/22 13:54 Respiratory Effort Non-Labored 04/02/22 14:06 Respiratory Depth Normal 04/02/22 14:06 Respiratory Pattern Normal 04/02/22 14:06 Blood Pressure 164/69 H 04/02/22 13:54 Blood Pressure Position Sitting 04/02/22 13:54 Pulse Oximetry 98 04/02/22 13:54 Oxygen Delivery Method Room Air 04/02/22 13:54 Oxygen Flow Rate 0 04/02/22 13:54 Pain Level 5 04/02/22 13:54 PAWSS Have you Been Recently Intoxicated or Drunk Within the Last 30 days?: No Have you Ever Experienced Previous Episodes of Alcohol Withdrawal?: No Have you ever Experienced Withdrawal Seizures?: No Have you ever Experienced Delirium Tremens(DT)s?: No Have you ever undergone Alcohol Rehabilitation Treatment (i.e, inpt ot outpatient treatment programs)?: No Have you ever Experienced Blackouts?: No Have you ever Combined Alcohol with other Downers within the last 90 days?: No Have you ever Combined Alcohol with any other Substance of Abuse during the last 90 days?: No Result: 0
== END 2022-04-02 15:56 | disposition home or self-care (01) ==
PROVIDERS: Emergency Provider Student in an Organized Health Care Education/Training Program; PCP Family Medicine
DX: S20.224A Contusion of middle back wall of thorax, initial encounter (principal); Z87.891 Personal history of nicotine dependence; W11.XXXA Fall on and from ladder, initial encounter; W22.8XXA Striking against or struck by other objects, initial encounter
CPT/HCPCS: 99284; 71046; 72125; 72128; 99282

== ENCOUNTER → 2022-05-03 09:33 | Outpatient (BNVA) | payer MEDICARE, OTHER, SELFPAY | PROVIDERS: PCP Family Medicine; Referring Provider Family Medicine; Visit Provider Nurse Practitioner Adult Health | DX: G56.03 Carpal tunnel syndrome, bilateral upper limbs (principal); G56.21 Lesion of ulnar nerve, right upper limb | CPT/HCPCS: 95910; 99203; 99213 ==

== ENCOUNTER → 2022-06-03 08:11 | Outpatient (BNVA) | payer MEDICARE, OTHER, SELFPAY | PROVIDERS: PCP Family Medicine; Referring Provider Family Medicine; Visit Provider Physical Therapy Assistant | DX: Z12.11 Encounter for screening for malignant neoplasm of colon (principal) ==

== ENCOUNTER 2022-06-14 06:15 | Day surgery (SDC) | payer MEDICARE, OTHER, SELFPAY ==
[2022-06-14 06:23] VITALS: BP 133/83; PULSE 59; RESP 17; TEMP 37.2; O2SAT 97
[2022-06-14 07:06] VITALS: BMI 28.7
--- NOTE | 2022-06-14 07:06 | W.ANESPRE ---
General Info Date of Service Date Performed: 06/14/22 Height: 5 ft 9 in Weight: 88.3 kg Body Mass Index (BMI): 28.7 Surgical Procedure: Operation Date: 06/14/22 07:35 Proposed Procedure Side Surgeon pablo Sorto MD Meds Allergies and Home Medications Allergies Allergy/AdvReac Type Severity Reaction Status Date / Time lisinopril AdvReac Mild Other (See Verified 06/03/22 08:13 Comment) Home Medication Medication Instructions Recorded omeprazole 20 mg capsule,delayed 20 mg PO DAILY ##14 01/06/14 release ascorbic acid (vitamin C) 1,000 mg 1,000 mg PO DAILY 12/31/15 tablet cetirizine 10 mg tablet 10 mg PO DAILY 12/31/15 omega-3 fatty acids-fish oil 300 1 ea PO DAILY 07/23/16 mg-1,000 mg capsule cholecalciferol (vitamin D3) 25 1,000 units PO DAILY 10/13/17 mcg (1,000 unit) tablet atorvastatin 20 mg tablet 20 mg PO DAILY 10/15/21 cyanocobalamin (vitamin B-12) 1,000 mcg PO DAILY 10/15/21 1,000 mcg capsule losartan 25 mg tablet 25 mg PO DAILY 10/15/21 bisacodyl 5 mg tablet,delayed 5 mg PO ONCE #4 tabs 06/03/22 release (Dulcolax (bisacodyl)) polyethylene glycol 3350 17 17 g PO ONCE #238 grams 06/03/22 gram/dose oral powder Current Visit Medications: Current Medications Generic Name Dose Route Start Last Admin Trade Name Freq PRN Reason Stop Dose Admin Ringer's Solution 1,000 mls @ 80 mls/hr 06/14/22 06:00 IV 06/14/22 23:59 INFUSION RAMOS IV Miscellaneous Supplies 1 each 06/14/22 06:00 Iv Access IV 06/14/22 23:59 DIRECTED RAMOS Sodium Chloride 0 ml 06/14/22 06:00 Normal Saline Flush 10 Ml Syr IV 06/14/22 23:59 PRN PRN Sodium Chloride 0 ml 06/14/22 06:00 Normal Saline 10 Ml Vial IJ 06/14/22 23:59 DIRECTED PRN Sterile Water 0 ml 06/14/22 06:00 Water,Injection,Sterile 10 Ml Vial IJ 12/12/22 23:59 DIRECTED PRN PFSH Active Problems Active Problems: Problem Status Onset Code Urothelial carcinoma of bladder C67.9 Neoplasm of skin 06/10/14 D49.2 Screening for colon cancer Z12.11 STANLEY (obstructive sleep apnea) G47.33 COPD, mild J44.9 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 Medical History Medical History Bee sting allergy Bladder cancer Carpal tunnel syndrome on both sides COPD (chronic obstructive pulmonary disease) Dyslipidemia GERD (gastroesophageal reflux disease) HTN (hypertension) Hypertension Labyrinthine vestibulitis Lymphadenopathy Pigmented skin lesion Seborrheic keratosis Type 2 diabetes mellitus Vitamin B 12 deficiency Vitamin B12 deficiency (non anemic) Surgical History Surgical History History of colonoscopy History of vasectomy 1979 Hx laparoscopic cholecystectomy 1970 Tobacco Smoking/Tobacco Use Status: Former Tobacco Use Alcohol Alcohol Intake: current Alcohol intake frequency: a few times a month Alcohol type: beer Details: SOCIALLY Substance Use Substance use: Never Substance use type: does not use Vital Signs and Lab Results Vital Signs Most Recent Vital Signs in EMR: Most Recent Vital Signs Temp Pulse Resp BP Pulse Ox 37.2 C 59 L 17 133/83 97 06/14/22 06:23 06/14/22 06:23 06/14/22 06:23 06/14/22 06:23 06/14/22 06:23 Lab Results Blood Type / Crossmatch: No Data to Display Complete Blood Count: No Data to Display Complete Metabolic Panel: No Data to Display Liver Function Panel: No Data to Display Coagulation Panel: No Data to Display Cardiac Panel: No Data to Display Arterial Blood Gas: No Data to Display Venous Blood Gas: No Data to Display Pancreas Panel: No Data to Display Thyroid Panel: No Data to Display Infectious Disease: No Data to Display Blood Cultures: No Data to Display Toxicology Panel: No Data to Display Imaging and Studies Imaging and Studies Study information below may be from another EMR and interpreted by another provider. Please see original notes in EMR for more complete details. Pulmonary Function Summary: 2017: mild obstructive airway dz with no sig bronchodilator response. mild hyperinflation/air trapping. Anesthesia Assessment and Plan Anesthesia History Personal History: No History of Anesthesia Complications Family History: No Family History of Anesthesia Complications Exercise Tolerance Exercise Tolerance: Metabolic Equivalents>4 Pertinent Negatives Pertinent Negatives: No Symptoms of GERD Cardiac & Pulmonary Exam Cardiac Exam: Normal S1/S2 Heart Sounds Pulmonary Exam: Clear Bilateral Breath Sounds Implantable Cardiac Device Does patient have a Pacemaker or an ICD?: No Airway Exam Known Difficult Airway: No Mallampati Class: 2 Mouth Opening: Normal (> 3cm) Thyromental Distance: Greater than 3 cm Neck Range of Motion: Full ROM Neck Circumference: Normal Teeth Condition: Normal Dentition and Removable Dentures/Plates Upper ASA Classification ASA Score: ASA 2 Emergency Case?: No NPO Status NPO Status: NPO Clears >2 hours, Solids >8 hours Anesthesia Plan Resuscitation Status: Full Code Anesthesia Technique: General Anesthesia Airway Planned: Natural Airway Monitors Used: Standard Monitors
[2022-06-14] MEDS: Lactated Ringers 1,000 ML 80 ML IV (07:08)
--- NOTE | 2022-06-14 07:51 | BOWEL_PTH ---
PATIENT: Antolin Calvert LOC: [facility] U#:[id number] AGE/SX: 71/M ROOM: RE06/14/[address]: Chandler Sorto : 1950 BED: DIS: 06/14/2022 SPEC #: [id number] RECD: 06/14/22 12:20 STATUS: SHABNAM RESharmila #: [id number] SHYANNE: 06/14/22 07:[address]: Chandler Sorto DEPT: Surgical Specimen RECD BY: Marina London ENTERED: 06/14/22 12:21 SP TYPE: Bowel OTHR DR: Glynn Farris Tissues: 1 - BIOPSY BOWEL 2 - BIOPSY BOWEL Procedures: GROSS AND MICRO LEVEL 4 Comments: [id number]
[2022-06-14 08:04] VITALS: BP 105/71; PULSE 58; RESP 16; TEMP 36.5; O2SAT 95
--- NOTE | 2022-06-14 08:04 | W.PM.ENDDOP ---
Date of service: 06/14/22 Time of Service: 08:04 Endoscopy Report PROCEDURE DESCRIPTION: Procedure performed: Colonoscopy with snare polypectomy Preoperative diagnosis: Surveillance colonoscopy Postoperative diagnosis: Colon polyps Surgeon: Rose Marie Sorto Anesthesia: Reyes Indication for procedure: Patient is a 71-year-old man who has no family history of colorectal cancer, has no symptoms and has had no significant findings on previous colonoscopies. Findings: A 3 to 5 mm sessile polyp was removed from the sigmoid colon with hot snare technique. Another 5-7 mm sessile polyp was removed from the rectum with hot snare technique. Surveillance/follow-up recommendations: 3-10 years pending path results. Villous or sessile serrated histology would warrant 3 years, simple adenomas warrant 7-10 years while hyperplastic histology renders 10-year surveillance interval. Another colonoscopy should be considered as long as the patient has a 5-10-year life expectancy at the time interval of the next scope. Complications: None Blood loss: Minimal Procedure in detail: Written consent was obtained from the patient who was in agreement with the risks, benefits and indications of the procedure. He was taken to the endoscopy suite and laid in left lateral decubitus position. Anesthesia was administered which he tolerated well. A timeout was performed and when we are all in agreement we began the procedure. Rectal exam and visual examination was performed and within normal limits. A well?lubricated colonoscope was advanced without difficulty all the way to the cecum identified by the ileocecal valve, and triangular folds and appendiceal orifice. It was then slowly withdrawn and the findings/interventions are noted above. Retroflexion was performed in the rectum, the scope was then removed and the patient tolerated the procedure well and was then taken back to the PACU in hemodynamically stable condition.
[2022-06-14 08:21] VITALS: BP 134/78; PULSE 52; RESP 16; TEMP 36.5; O2SAT 98
--- NOTE | 2022-06-14 08:34 | W.ANESPOSTOP ---
Postoperative Evaluation Date, Time and Location Date Performed: 06/14/22 Time Performed: 08:19 Patient Location: Day Surgery Unit Vital Signs Most Recent Imported Vital Signs: Most Recent Vital Signs Temp Pulse Resp BP Pulse Ox 36.5 C 52 L 16 134/78 98 06/14/22 08:21 06/14/22 08:21 06/14/22 08:21 06/14/22 08:21 06/14/22 08:21 Pain Score Most Recent Pain Score: Most Recent Pain Score Pain Level 0 06/14/22 08:21 Assessment Mental Status: Awake (Alert & Oriented to Patient Baseline) Airway and Respiratory Function: Patent airway with normal (patient baseline) respiratory exam Cardiovascular Function: Hemodynamically Stable Hydration Status: Adequately Hydrated Nausea & Vomiting: No Nausea or Vomiting Pain: Pt. Denies Any Pain Peripheral Nerve Block: Patient did not receive a nerve block Postoperative Comments:: discussed infiltration of right IV and signs and symptoms to notify us or general surgeon. repeated education
== END 2022-06-14 08:39 | disposition home or self-care (01) ==
PROVIDERS: PCP Family Medicine; Visit Provider Student in an Organized Health Care Education/Training Program
PROC: 0DJD8ZZ Inspection of Lower Intestinal Tract, Via Natural or Artificial Opening Endoscopic (ICD-10-PCS; CPT 45378; principal; 2022-06-14 07:30)
DX: Z12.11 Encounter for screening for malignant neoplasm of colon (principal); K63.5 Polyp of colon; K62.1 Rectal polyp
CPT/HCPCS: 45385; 88305

== ENCOUNTER → 2022-06-29 08:44 | Outpatient (BNVA) | payer MEDICARE, OTHER, SELFPAY | PROVIDERS: PCP Family Medicine; Referring Provider Family Medicine; Visit Provider Urology | DX: Z08 Encounter for follow-up examination after completed treatment for malignant neoplasm (principal); Z85.51 Personal history of malignant neoplasm of bladder | CPT/HCPCS: 52000; 81003 ==

== ENCOUNTER 2022-06-29 09:57 | Outpatient (REF) | payer MEDICARE, OTHER, SELFPAY ==
--- NOTE | 2022-06-29 09:00 | PAPNONF_PTH ---
PATIENT: Antolin Calvert LOC: [facility] U#:[id number] AGE/SX: 71/M ROOM: RE06/29/[address]: Hugh Marrufo MD : 1950 BED: DIS: 06/29/2022 SPEC #: [id number] RECD: 06/29/22 13:55 STATUS: SHABNAM REQ #: [id number] SHYANNE: 06/29/22 09:[address]: Hugh Marrufo DEPT: [facility] Cytology RECD BY: Marina London ENTERED: 06/29/22 13:55 SP TYPE: ZARIA LEE DR: Glynn Farris Tissues: 1 - BODY FLUID CYTO(SPUTUM/URINE)[facility] Procedures: BODY FLUID CYTO(URINE/SPUTUM) Comments: [id number] (TOTAL VOLUME = 100 ml) (REFRIGERATED) (50 ml URINE & 50 ml CYTOLYTE ADDED IN 2 CONTAINERS)
== END 2022-06-29 09:58 | disposition home or self-care (01) ==
LOC: LBN 09:57
PROVIDERS: PCP Family Medicine; Visit Provider Urology
DX: C67.9 Malignant neoplasm of bladder, unspecified (principal)
CPT/HCPCS: 88104

== ENCOUNTER → 2022-07-01 13:44 | Outpatient (BNVA) | payer MEDICARE, OTHER, SELFPAY | PROVIDERS: PCP Family Medicine; Referring Provider Family Medicine; Visit Provider Student in an Organized Health Care Education/Training Program | DX: G56.21 Lesion of ulnar nerve, right upper limb (principal); G56.03 Carpal tunnel syndrome, bilateral upper limbs | CPT/HCPCS: 99213 ==

== ENCOUNTER 2022-07-07 09:52 | Day surgery (SDC) | payer MEDICARE, OTHER, SELFPAY ==
[2022-07-07 10:08] VITALS: BP 154/75; PULSE 54; RESP 16; TEMP 36.5; O2SAT 98
[2022-07-07] MEDS: Lactated Ringers 1,000 ML 80 ML IV (10:31)
--- NOTE | 2022-07-07 10:49 | ANES.PREOP_ITS ---
General Info Date of Service Date Performed: 07/07/22 Height: 5 ft 9 in Weight: 90.9 kg Body Mass Index (BMI): 29.5 Surgical Procedure: Operation Date: 07/07/22 11:55 Proposed Procedure Side Surgeon p Wrist ECTR Left Storm Gaona MD Meds Allergies and Home Medications Allergies Allergy/AdvReac Type Severity Reaction Status Date / Time lisinopril AdvReac Mild cough Verified 07/07/22 11:09 Home Medication Medication Instructions Recorded omeprazole 20 mg capsule,delayed 20 mg PO DAILY ##14 01/06/14 release ascorbic acid (vitamin C) 1,000 mg 1,000 mg PO DAILY 12/31/15 tablet cetirizine 10 mg tablet 10 mg PO DAILY 12/31/15 omega-3 fatty acids-fish oil 300 1 ea PO DAILY 07/23/16 mg-1,000 mg capsule cholecalciferol (vitamin D3) 25 1,000 units PO DAILY 10/13/17 mcg (1,000 unit) tablet atorvastatin 20 mg tablet 20 mg PO DAILY 10/15/21 cyanocobalamin (vitamin B-12) 1,000 mcg PO DAILY 10/15/21 1,000 mcg capsule losartan 25 mg tablet 25 mg PO DAILY 10/15/21 acetaminophen 500 mg tablet 1,000 mg PO TID #90 tabs 07/07/22 ibuprofen 600 mg tablet 600 mg PO TID PRN pain #90 tabs 07/07/22 Current Visit Medications: Current Medications Generic Name Dose Route Start Last Admin Trade Name Freq PRN Reason Stop Dose Admin Ringer's Solution 1,000 mls @ 80 mls/hr 07/07/22 06:00 07/07/22 10:31 IV 08/05/22 23:59 80 mls/hr INFUSION RAMOS Administration Cefazolin Sodium/Dextrose 2 gm in 50 mls @ 100 mls/hr 07/07/22 06:00 Ancef Duplex IVPB 08/05/22 23:59 PREOP RAMOS IV Miscellaneous Supplies 1 each 07/07/22 06:00 Iv Access IV 08/05/22 23:59 DIRECTED RAMOS Sodium Chloride 0 ml 07/07/22 06:00 Normal Saline Flush 10 Ml Syr IV 08/05/22 23:59 PRN PRN Sodium Chloride 0 ml 07/07/22 06:00 Normal Saline 10 Ml Vial IJ 08/05/22 23:59 DIRECTED PRN Sterile Water 0 ml 07/07/22 06:00 Water,Injection,Sterile 10 Ml Vial IJ 08/05/22 23:59 DIRECTED PRN PFSH Active Problems Active Problems: Problem Status Onset Code Serrated adenoma of colon D12.6 Urothelial carcinoma of bladder C67.9 Neoplasm of skin 06/10/14 D49.2 Screening for colon cancer Z12.11 STANLEY (obstructive sleep apnea) G47.33 COPD, mild J44.9 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 [place] [employer] [employer] [place], has bilateral hearing aids, did not bring to [facility] today. Surgical History Surgical History (Updated 07/07/22 @ 11:14 by ANGEL Sultana) History of colonoscopy (~06/2022) History of vasectomy 1979 Hx laparoscopic cholecystectomy 1970 Tobacco Smoking/Tobacco Use Status: Former Tobacco Use Alcohol Alcohol Intake: current Alcohol intake frequency: a few times a month Alcohol type: beer Details: SOCIALLY Substance Use Substance use: Never Substance use type: does not use Vital Signs and Lab Results Vital Signs Most Recent Vital Signs in EMR: Most Recent Vital Signs Temp Pulse Resp BP Pulse Ox 36.5 C 54 L 16 154/75 H 98 07/07/22 10:08 07/07/22 10:08 07/07/22 10:08 07/07/22 10:08 07/07/22 10:08 Point of Care Results Point of Care Results: Finger Stick Blood Glucose 118 07/07/22 10:02 Lab Results Blood Type / Crossmatch: No Data to Display Complete Blood Count: No Data to Display Complete Metabolic Panel: No Data to Display Liver Function Panel: No Data to Display Coagulation Panel: No Data to Display Cardiac Panel: No Data to Display Arterial Blood Gas: No Data to Display Venous Blood Gas: No Data to Display Pancreas Panel: No Data to Display Thyroid Panel: No Data to Display Infectious Disease: No Data to Display Blood Cultures: No Data to Display Toxicology Panel: No Data to Display Imaging and Studies Imaging and Studies Study information below may be from another EMR and interpreted by another provider. Please see original notes in EMR for more complete details. Pulmonary Function Summary: 2017: mild obstructive airway dz with no sig bronchodilator response. mild hyperinflation/air trapping. Anesthesia Assessment and Plan Anesthesia History Personal History: No History of Anesthesia Complications Family History: No Family History of Anesthesia Complications Exercise Tolerance Exercise Tolerance: Metabolic Equivalents>4 Cardiac & Pulmonary Exam Cardiac Exam: Normal S1/S2 Heart Sounds Pulmonary Exam: Clear Bilateral Breath Sounds Implantable Cardiac Device Does patient have a Pacemaker or an ICD?: No Airway Exam Known Difficult Airway: No Mallampati Class: 2 Mouth Opening: Normal (> 3cm) Thyromental Distance: Greater than 3 cm Neck Range of Motion: Full ROM Neck Circumference: Normal Teeth Condition: Normal Dentition and Removable Dentures/Plates Upper ASA Classification ASA Score: ASA 2 Emergency Case?: No NPO Status NPO Status: NPO Clears >2 hours, Solids >8 hours Anesthesia Plan Resuscitation Status: Full Code Anesthesia Technique: General Anesthesia Airway Planned: Natural Airway Monitors Used: Standard Monitors Preoperative Comments:: 70 yo male for ECTR. Denies any change in health history since colo in Jun. Sig PMHx: STANLEY (uses CPAP), COPD, HTN, GERD (well controlled), former smoker, DM2 (118 today). Previous Anes: - prop/midaz w/o airway. - colo with prop no airway.
--- NOTE | 2022-07-07 11:13 | W.PM.DSUDISC ---
Date of service: 07/07/22 Time of Service: 11:13 Discharge Plan Disposition Patient Disposition: Home Discharge Details Reason For Visit: L ECTR Attending Provider: Storm Gaona Primary Care Provider: Glynn Farris Home Meds and New Rx's Prescriptions: New acetaminophen 500 mg tablet 1,000 mg PO TID Qty: 90 0RF ibuprofen 600 mg tablet 600 mg PO TID PRN (Reason: pain) Qty: 90 0RF Continued omega-3 fatty acids-fish oil 1 EACH capsule 1 ea PO DAILY losartan 25 mg tablet 25 mg PO DAILY cyanocobalamin (vitamin B-12) 1,000 mcg capsule 1,000 mcg PO DAILY atorvastatin 20 mg tablet 20 mg PO DAILY omeprazole 20 MG capsule,delayed release(DR/EC) 20 mg PO DAILY Qty: 14 1RF ascorbic acid (vitamin C) 1,000 MG tablet 1,000 mg PO DAILY cetirizine 10 MG tablet 10 mg PO DAILY cholecalciferol (vitamin D3) 1,000 UNITS tablet 1,000 units PO DAILY Discharge Instructions Stand Alone Forms: [facility] Tunnel Release Referrals: Storm Gaona MD [ [facility] STAFF PHYSICIAN] - Activity:: Activity as Tolerated Remove Dressings/Wound Care:: 48 hours Shower/Bathe:: 48 hours Diet:: As Tolerated Discharge Orders Discharge Orders: Discharge Order (Routine); Ordered 07/07/22 Ordered By: Shahid Joe DS: Diagnosis Discharge Diagnosis (1) Left carpal tunnel syndrome: Status: Acute
[2022-07-07] MEDS: ceFAZolin 2 GM/50 ML BAG IVPB (11:49)
[2022-07-07] MEDS: Lidocaine 1% Pres-Free W/EPI 1/200,000 10 ML VIAL (11:51)
[2022-07-07 12:00] VITALS: BP 151/86; PULSE 59; RESP 14; TEMP 36.8; O2SAT 97
[2022-07-07 12:31] VITALS: BP 144/90; PULSE 62; RESP 16; TEMP 36.7; O2SAT 98
[2022-07-07 12:47] VITALS: BMI 29.5
--- NOTE | 2022-07-07 12:58 | W.ANESPOSTOP ---
Postoperative Evaluation Date, Time and Location Date Performed: 07/07/22 Time Performed: 12:34 Patient Location: Day Surgery Unit Vital Signs Most Recent Imported Vital Signs: Most Recent Vital Signs Temp Pulse Resp BP Pulse Ox 36.7 C 62 16 144/90 H 98 07/07/22 12:31 07/07/22 12:31 07/07/22 12:31 07/07/22 12:31 07/07/22 12:31 Pain Score Most Recent Pain Score: Most Recent Pain Score Pain Level 0 07/07/22 12:31 Assessment Mental Status: Awake (Alert & Oriented to Patient Baseline) Airway and Respiratory Function: Patent airway with normal (patient baseline) respiratory exam Cardiovascular Function: Hemodynamically Stable Hydration Status: Adequately Hydrated Nausea & Vomiting: No Nausea or Vomiting Pain: Pt. Denies Any Pain Peripheral Nerve Block: Patient did not receive a nerve block
--- NOTE | 2022-07-07 13:07 | W.PM.OP ---
Date of service: 07/07/22 Time of Service: 11:45 Operative Note Operative Note DATE OF PROCEDURE: 07/07/22 PRE-OP DIAGNOSIS: Left Carpal Tunnel Syndrome POST-OP DIAGNOSIS: same PROCEDURE: Left Endoscopic Carpal Tunnel Release SURGEON: Storm Gaona ANESTHESIA TYPE: General:No Airway Refer to Anesthesia Record ESTIMATED BLOOD LOSS: 0 PATHOLOGY: none sent TOURNIQUET TIME: 4 COMPLICATIONS: None Patient was transported to: same day Patient's condition: stable Indications: I have seen Unruly in clinic for symptoms of carpal tunnel syndrome. The numbness, tingling, and pain limited function. Clinical exam findings with nerve conduction tests confirmed the diagnosis of carpal tunnel syndrome. Nonoperative measures such as bracing, time, activity modifications had been tried but disability and pain persisted. I discussed carpal tunnel release with the patient. I reviewed the risks of the procedure to include, but not limited to, bleeding, infection, pain, stiffness, incomplete release, damage to nerves or vessels, persistent numbness, recurrence. Despite these risks, the patient elected to proceed. Findings: There was tightened carpal tunnel. This was dilated and released successfully with the endoscopic with increased space within the tunnel. The antebrachial fascia was released proximally freeing the median nerve at the wrist. Procedure Description: Unruly was greeted in the preoperative holding area where the correct side was identified and marked. The consent was reviewed with the patient and signed. The history and physical was updated. All questions were answered. He was taken back to the operating room. The patient was placed into the supine position on the operating room table with the left arm on an arm board. A nonsterile tourniquet was placed high onto the arm. All bony prominences were well padded. Prophylactic antibiotics in the form of Cefazolin were administered. The left arm was then prepped with Chloraprep and draped in a standard fashion with stockinette and extremity drape. A timeout to confirm correct identity, side and site, procedure, allergies, anesthesia, and medical concerns was performed. The surgical site was marked in the volar wrist creases in line with the radial border of the fourth ray. This area was anesthetized with approximately 6cc of 1% Lidocaine. The limb was then exsanguinated with an Esmarch. The skin was incised with a 15 blade, approximately 1cm. The skin only was cut and the deeper tissue was dissected bluntly with a tenotomy scissor, avoiding passing nerve and venous structures. The fascia was penetrated and opened bluntly. A two-prong skin hook was placed under this proximal fascial edge. A series of hamate finders were used to identify and dilate the carpal tunnel. Synovial elevator was used to free synovial attachments to the underside of the transverse carpal ligament. My thumb was kept in the palm to rashi the distal extent of the carpal tunnel and correctly position the hand. The Microaire endoscope was inserted without difficulty and without resistance. Excellent visualization showed horizontally running fibers of the transverse carpal ligament (TCL). The distal extent of the TCL was visualized and the end of the scope palpated with the thumb. The blade was elevated and withdrawn from distal to proximal. The TCL was split into two flaps. The endoscope was reinserted to confirm complete release and any remnant ligament was incised. The scope was withdrawn and the proximal aspect of the carpal tunnel was grossly inspected and appeared release with the median nerve visible. The antebrachial fascia at the level of the wrist was then freed from the overlying skin and then the underlying median nerve with blunt dissection. This was transected longitudinally for about 3cm proximal to the wrist incision. The wound was then irrigated with easy flow of irrigant distally and proximally. The incision was closed with a single 4-0 Nylon suture. The wound was dressed with Xeroform, Gauze, Kerlix and Julio. The tourniquet was deflated with the initial dressing and held with some pressure. Blood flow returned easily to all digits with capillary refill less than 2 seconds. The patient tolerated the procedure well and was returned to the Same Day Surgery area in a stable condition suffering no known complication.
== END 2022-07-07 12:55 | disposition home or self-care (01) ==
PROVIDERS: PCP Family Medicine; Visit Provider Student in an Organized Health Care Education/Training Program
PROC: 01N54ZZ Release Median Nerve, Percutaneous Endoscopic Approach (ICD-10-PCS; CPT 29848; principal; 2022-07-07 11:45)
DX: G56.02 Carpal tunnel syndrome, left upper limb (principal); J44.9 Chronic obstructive pulmonary disease, unspecified; I10 Essential (primary) hypertension; E11.9 Type 2 diabetes mellitus without complications
CPT/HCPCS: 29848; J0690; J2250; J2704

== ENCOUNTER → 2022-07-16 11:03 | Outpatient (BNVA) | payer MEDICARE, OTHER, SELFPAY | PROVIDERS: PCP Family Medicine; Referring Provider Family Medicine; Visit Provider Student in an Organized Health Care Education/Training Program | DX: Z47.89 Encounter for other orthopedic aftercare (principal); G56.02 Carpal tunnel syndrome, left upper limb ==

== ENCOUNTER 2022-07-27 06:14 | Day surgery (SDC) | payer MEDICARE, OTHER, SELFPAY ==
[2022-07-27 06:25] VITALS: BP 142/77; PULSE 54; RESP 18; TEMP 37; O2SAT 96
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
[2022-07-27] MEDS: Lactated Ringers 1,000 ML 80 ML IV (07:05)
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
--- NOTE | 2022-07-27 07:11 | W.PM.DSUDISC ---
Date of service: 07/27/22 Time of Service: 07:12 Discharge Plan Disposition Patient Disposition: Home Condition: Good Discharge Details Reason For Visit: Right carpal tunnel syndrome Attending Provider: Storm Gaona Primary Care Provider: Glynn Farris Home Meds and New Rx's Prescriptions: Continued omega-3 fatty acids-fish oil 1 EACH capsule 1 ea PO DAILY losartan 25 mg tablet 25 mg PO DAILY cyanocobalamin (vitamin B-12) 1,000 mcg capsule 1,000 mcg PO DAILY atorvastatin 20 mg tablet 20 mg PO DAILY omeprazole 20 MG capsule,delayed release(DR/EC) 20 mg PO DAILY Qty: 14 1RF ascorbic acid (vitamin C) 1,000 MG tablet 1,000 mg PO DAILY cetirizine 10 MG tablet 10 mg PO DAILY acetaminophen 500 mg tablet 1,000 mg PO TID Qty: 90 0RF ibuprofen 600 mg tablet 600 mg PO TID PRN (Reason: pain) Qty: 90 0RF cholecalciferol (vitamin D3) 1,000 UNITS tablet 1,000 units PO DAILY Discharge Instructions Stand Alone Forms: Candelaria Herman Tunnel Release Activity:: Elevate Remove Dressings/Wound Care:: 48 hours Shower/Bathe:: 48 hours Diet:: As Tolerated Discharge Orders Discharge Orders: Discharge Order (Routine); Ordered 07/27/22 Ordered By: Gillian Hinojosa
[2022-07-27 07:16] VITALS: BMI 29.8
[2022-07-27] MEDS: ceFAZolin 2 GM/50 ML BAG IVPB (07:28)
[2022-07-27] MEDS: Lidocaine 1% Pres-Free W/EPI 1/200,000 10 ML VIAL (07:32)
[2022-07-27 07:44] VITALS: BP 152/88; PULSE 57; RESP 16; TEMP 36.6; O2SAT 95
--- NOTE | 2022-07-27 08:05 | W.ANESPOSTOP ---
Postoperative Evaluation Date, Time and Location Date Performed: 07/27/22 Time Performed: 08:05 Patient Location: Day Surgery Unit Vital Signs Most Recent Imported Vital Signs: Most Recent Vital Signs Temp Pulse Resp BP Pulse Ox 36.6 C 57 L 16 152/88 H 95 07/27/22 07:44 07/27/22 07:44 07/27/22 07:44 07/27/22 07:44 07/27/22 07:44 Pain Score Most Recent Pain Score: Most Recent Pain Score Pain Level 0 07/27/22 07:44 Assessment Mental Status: Awake (Alert & Oriented to Patient Baseline) Airway and Respiratory Function: Patent airway with normal (patient baseline) respiratory exam Cardiovascular Function: Hemodynamically Stable Hydration Status: Adequately Hydrated Nausea & Vomiting: No Nausea or Vomiting Pain: Pt. Denies Any Pain Peripheral Nerve Block: Patient did not receive a nerve block
[2022-07-27 08:14] VITALS: BP 145/89; PULSE 54; RESP 16; TEMP 36.6; O2SAT 94
--- NOTE | 2022-07-27 08:18 | W.ANESPOSTOP ---
Postoperative Evaluation Date, Time and Location Date Performed: 07/27/22 Time Performed: 07:44 Patient Location: Day Surgery Unit Vital Signs Most Recent Imported Vital Signs: Most Recent Vital Signs Temp Pulse Resp BP Pulse Ox 36.6 C 57 L 16 152/88 H 95 07/27/22 07:44 07/27/22 07:44 07/27/22 07:44 07/27/22 07:44 07/27/22 07:44 Most Recent Vital Signs Temp Pulse Resp BP Pulse Ox 36.6 C 57 L 16 152/88 H 95 07/27/22 07:44 07/27/22 07:44 07/27/22 07:44 07/27/22 07:44 07/27/22 07:44 Pain Score Most Recent Pain Score: Most Recent Pain Score Pain Level 0 07/27/22 07:44 Assessment Mental Status: Awake (Alert & Oriented to Patient Baseline) Airway and Respiratory Function: Patent airway with normal (patient baseline) respiratory exam Cardiovascular Function: Hemodynamically Stable Hydration Status: Adequately Hydrated Nausea & Vomiting: No Nausea or Vomiting Pain: Pt. Denies Any Pain Peripheral Nerve Block: Patient did not receive a nerve block
--- NOTE | 2022-07-27 09:54 | ROE_ITS ---
Date of service: 07/27/22 Time of Service: 07:45 Operative Note Operative Note DATE OF PROCEDURE: 07/27/22 PRE-OP DIAGNOSIS: Right Carpal Tunnel Syndrome POST-OP DIAGNOSIS: same PROCEDURE: Right Endoscopic Carpal Tunnel Release SURGEON: Storm Gaona ANESTHESIA TYPE: General:No Airway Refer to Anesthesia Record ESTIMATED BLOOD LOSS: 0 PATHOLOGY: none sent TOURNIQUET TIME: 4 COMPLICATIONS: None Patient was transported to: same day Patient's condition: stable Indications: I have seen Unruly in clinic for symptoms of carpal tunnel syndrome. The numbness, tingling, and pain limited function. Clinical exam findings with nerve conduction tests confirmed the diagnosis of carpal tunnel syndrome. He had a successful carpal tunnel release on the left side. Nonoperative measures such as bracing, time, activity modifications had been tried but disability and pain persisted. I discussed carpal tunnel release with the patient. I reviewed the risks of the procedure to include, but not limited to, bleeding, infection, pain, stiffness, incomplete release, damage to nerves or vessels, persistent numbness, recurrence. Despite these risks, the patient elected to proceed. Findings: There was tightened carpal tunnel. This was dilated and released successfully with the endoscopic with increased space within the tunnel. The antebrachial fascia was released proximally freeing the median nerve at the wrist. Procedure Description: Unruly was greeted in the preoperative holding area where the correct side was identified and marked. The consent was reviewed with the patient and signed. The history and physical was updated. All questions were answered. He was taken back to the operating room. The patient was placed into the supine position on the operating room table with the right arm on an arm board. A no nsterile tourniquet was placed high onto the arm. All bony prominences were well padded. Prophylactic antibiotics in the form of Cefazolin were administered. The right arm was then prepped with Chloraprep and draped in a standard fashion with stockinette and extremity drape. A timeout to confirm correct identity, side and site, procedure, allergies, anesthesia, and medical concerns was performed. The surgical site was marked in the volar wrist creases in line with the radial border of the fourth ray. This area was anesthetized with approximately 6cc of 1% Lidocaine. The limb was then exsanguinated with an Esmarch. The skin was incised with a 15 blade, approximately 1cm. The skin only was cut and the deeper tissue was dissected bluntly with a tenotomy scissor, avoiding passing nerve and venous structures. The fascia was penetrated and opened bluntly. A two-prong skin hook was placed under this proximal fascial edge. A series of hamate finders were used to identify and dilate the carpal tunnel. Synovial elevator was used to free synovial attachments to the underside of the transverse carpal ligament. My thumb was kept in the palm to rashi the distal extent of the carpal tunnel and correctly position the hand. The Microaire endoscope was inserted without difficulty and without resistance. Excellent visualization showed horizontally running fibers of the transverse carpal ligament (TCL). The distal extent of the TCL was visualized and the end of the scope palpated with the thumb. The blade was elevated and withdrawn from distal to proximal. The TCL was split into two flaps. The endoscope was reinserted to confirm complete release and any remnant ligament was incised. The scope was withdrawn and the proximal aspect of the carpal tunnel was grossly inspected and appeared release with the median nerve visible. The antebrachial fascia at the level of the wrist was then freed from the overlying skin and then the underlying median nerve with blunt dissection. This was transected longitudinally for about 3cm proximal to the wrist incision. The wound was then irrigated with easy flow of irrigant distally and proximally. The incision was closed with a single 4-0 Nylon suture. The wound was dressed with Xeroform, Gauze, Kerlix and Julio. The tourniquet was deflated with the initial dressing and held with some pressure. Blood flow returned easily to all digits with capillary refill less than 2 seconds. The patient tolerated the procedure well and was returned to the Same Day Surgery area in a stable condition suffering no known complication.
== END 2022-07-27 08:37 | disposition home or self-care (01) ==
PROVIDERS: PCP Family Medicine; Visit Provider Student in an Organized Health Care Education/Training Program
PROC: 01N54ZZ Release Median Nerve, Percutaneous Endoscopic Approach (ICD-10-PCS; CPT 29848; principal; 2022-07-27 07:30)
DX: G56.01 Carpal tunnel syndrome, right upper limb (principal); J44.9 Chronic obstructive pulmonary disease, unspecified; E78.5 Hyperlipidemia, unspecified
CPT/HCPCS: 29848; J0690; J1100; J2250; J2405; J2704

== ENCOUNTER → 2022-08-06 10:15 | Outpatient (BNVA) | payer MEDICARE, OTHER, SELFPAY | PROVIDERS: PCP Family Medicine; Referring Provider Family Medicine; Visit Provider Student in an Organized Health Care Education/Training Program | DX: Z47.89 Encounter for other orthopedic aftercare (principal); R60.0 Localized edema ==

== ENCOUNTER 2022-10-11 02:16 | Outpatient (CLI) | payer MEDICARE, OTHER, SELFPAY ==
[2022-10-11] MEDS: Albuterol HFA 18 GM 200 PUFF INH IH (11:15)
[2022-10-11] MEDS: Inhaler, Assist Device 1 EACH MC (11:16)
--- NOTE | 2022-10-11 12:07 | W.PFT ---
Date of service: 10/11/22 Time of Service: 10:05 Pulmonary Function Test Result Indications: COPD Interpretation Spirometry: There is no airflow limitation. There is no significant bronchodilator response. Lung Volumes: There is air trapping and hyperinflation Diffusion Capacity: Normal diffusion Airway Pressure: Normal airways resistance Impression There is technically no airflow limitation, however there is air trapping and hyperinflation suggestive of airways disease (COPD or asthma). Note: When accounting for aging, pulmonary function is stable from 05/04/12 Clinical Correlation therefore is recommended.
== END 2022-10-11 02:17 | disposition home or self-care (01) ==
LOC: RT 02:17
PROVIDERS: PCP Family Medicine; Visit Provider Family Medicine
DX: J44.9 Chronic obstructive pulmonary disease, unspecified (principal)
CPT/HCPCS: 94060; 94726; 94729

== ENCOUNTER → 2022-12-28 08:49 | Outpatient (BNVA) | payer MEDICARE, OTHER, SELFPAY | PROVIDERS: PCP Family Medicine; Visit Provider Urology | DX: Z08 Encounter for follow-up examination after completed treatment for malignant neoplasm (principal); Z85.51 Personal history of malignant neoplasm of bladder | CPT/HCPCS: 52000; 81003 ==

== ENCOUNTER 2023-11-15 11:51 | Emergency (ER) | payer OTHER, SELFPAY ==
--- NOTE | 2023-11-15 11:45 | RT.EKG_ITS ---
APPROVED REPORT Exam: Resting ECG Reason for Exam: Side Pain Patient Location: E HR:49 bpm ECG Measurements Heart Rate 49 AXIS VT 193 P 40 QRSd 85 QRS 38 QT 487 T 52 QTc 439 Conclusion Sinus bradycardia...rate< 60 sinus bradycardial, normal axis, normal intervals, non ischemic
[2023-11-15 11:53] VITALS: BP 189/87; PULSE 54; RESP 18; TEMP 37.3; O2SAT 98
--- NOTE | 2023-11-15 12:30 | DI.RAD_ITS ---
Exam(s) XR CHEST 2V PA LATERAL EXAM: XR CHEST 2V PA LATERAL CLINICAL HISTORY: Chest Pain, SOB. TECHNIQUE: 2D digital imaging was performed. COMPARISON: CR XR CHEST 2V PA LATERAL from 04/02/2022 FINDINGS: 2 views: Heart size is normal. The mediastinum is not widened. Left lung is clear. Subtle increased markings are noted in the lateral right lung. Possibly subtle infiltrate at this level. No pleural effusions. No pneumothorax. No fractures. IMPRESSION: Possible very subtle nodular infiltrate in the mid-lower right lung field. There are no pleural effu sions. DATA REPOSITORY: RADIATION DOSE DELIVERED:
[2023-11-15 13:15] LABS: Abs Immature Grans 0.02 10^3/uL (0.0-0.06); Absolute Basophil Count 0.02 10^3/uL (0.0-0.2); Absolute Eosinophil Count 0.11 10^3/uL (0.0-0.7); Absolute Monocyte Count 0.38 10^3/uL (0.1-0.8); Absolute Neutrophil Count 2.66 10^3/uL (1.2-6.7); Basophils % 0.4 %; Eosinophils % 2.1 %; HCT 40.5 % (40.0-50.0); HGB 13.9 g/dL (13.5-17.5); Immature Grans % 0.4 %; Lymphocytes % 38.5 %; MCH 31.4 pg (27.0-33.0); MCHC 34.3 % (32.0-36.0); MCV 92 fL (80-95); MPV 9.9 fL (8.0-11.0); Monocytes % 7.3 %; Neutrophils % 51.3 %; Platelet Count 179 10^3/uL (130-400); RBC 4.42 10^6/uL (4.36-5.78); RDW 11.4 % (11.8-14.1); RDW-SD 38.8 fL; WBC 5.19 10^3/uL (4.4-10.8)
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
[2023-11-15 13:31] LABS: ALT 29 U/L (16-63); AST 14 U/L (15-37); Albumin 4.3 g/dL (3.4-5.0); Alkaline Phosphatase 49 U/L (46-116); Anion Gap 7.2 mmol/L (3-11); BUN 12 mg/dL (7-18); Bilirubin, Total 0.6 mg/dL (0.2-1.0); CO2 31.8 mmol/L (21.0-32.0); Chloride 102 mmol/L (98-107); Estimated GFR 80.97 (mL/min/1.73m2); Glucose 111 mg/dL (74-106); Potassium 4.2 mmol/L (3.5-5.1); Sodium 141 mmol/L (136-145); Total Protein 7.7 g/dL (6.4-8.2); Troponin I < 50 ng/L (< or =60)
[2023-11-15] MEDS: Acetaminophen 325 MG TAB 650 MG PO (13:58)
[2023-11-15] MEDS: Lidocaine 5% Patch 1 PATCH TP (13:59)
[2023-11-15] MEDS: Amoxicillin 875/Clav. 125 TAB PO (14:50)
[2023-11-15 14:51] VITALS: BP 142/87; PULSE 60; RESP 18; O2SAT 96
== END 2023-11-15 14:53 | disposition home or self-care (01) ==
PROVIDERS: Emergency Provider Registered Nurse Emergency; PCP Family Medicine
DX: J18.9 Pneumonia, unspecified organism (principal); R07.9 Chest pain, unspecified; R91.8 Other nonspecific abnormal finding of lung field; I10 Essential (primary) hypertension
CPT/HCPCS: 80053; 93005; 99283; 71046; 84484; 85025; 93010

== ENCOUNTER → 2023-12-27 08:47 | Outpatient (BNVA) | payer MEDICARE, OTHER, SELFPAY | PROVIDERS: PCP Family Medicine; Visit Provider Urology | DX: C67.9 Malignant neoplasm of bladder, unspecified (principal) | CPT/HCPCS: 52000; 81003 ==

== ENCOUNTER 2023-12-27 10:08 | Outpatient (REF) | payer MEDICARE, OTHER, SELFPAY ==
--- NOTE | 2023-12-27 09:20 | PAPNONF_PTH ---
PATIENT: Antolin Calvert LOC: TIM U#:[id number] AGE/SX: 73/M ROOM: RE12/27/[address]: Hugh Marrufo MD : 1950 BED: DIS: 12/27/2023 SPEC #: [id number] RECD: 12/27/23 13:15 STATUS: SHABNAM REQ #: [id number] SHYANNE: 12/27/23 09:[address]: Hugh Marrufo DEPT: [facility] Cytology RECD BY: Marina Lodnon ENTERED: 12/27/23 13:16 SP TYPE: ZARIA LEE DR: Glynn Farris Tissues: 1 - BODY FLUID CYTO(SPUTUM/URINE)[facility] Procedures: BODY FLUID CYTO(URINE/SPUTUM) Comments: [id number] (TV=50 ml, 30 cm CYTOLYT ADDED) (REFRIGERATED)
== END 2023-12-27 10:09 | disposition home or self-care (01) ==
LOC: LBN 10:08
PROVIDERS: PCP Family Medicine; Visit Provider Urology
DX: C67.9 Malignant neoplasm of bladder, unspecified (principal)
CPT/HCPCS: 88104

== ENCOUNTER → 2024-12-25 08:46 | Outpatient (BNVA) | payer MEDICARE, OTHER, SELFPAY | PROVIDERS: PCP Family Medicine; Visit Provider Urology | DX: C67.9 Malignant neoplasm of bladder, unspecified (principal) | CPT/HCPCS: 81002; 52000 ==

== ENCOUNTER 2024-12-25 09:15 | Outpatient (REF) | payer MEDICARE, SELFPAY ==
--- NOTE | 2024-12-25 09:00 | PAPNONF_PTH ---
PATIENT: Antolin Calvert LOC: TIM U#:[id number] AGE/SX: 74/M ROOM: RE12/25/[address]: Hugh Marrufo MD : 1950 BED: DIS: 12/25/2024 SPEC #: [id number] RECD: 12/25/24 12:51 STATUS: SHABNAM REQ #: [id number] SHYANNE: 12/25/24 09:[address]: Hugh Marrufo DEPT: [facility] Cytology RECD BY: Marina London ENTERED: 12/25/24 12:52 SP TYPE: ZARIA LEE DR: Glynn Farris Tissues: 1 - BODY FLUID CYTO(SPUTUM/URINE)[facility] Procedures: BODY FLUID CYTO(URINE/SPUTUM) Comments: [id number] (TV = 70 ml, 30 ml CYTOLYT ADDED) (REFRIGERATED)
== END 2024-12-25 09:16 | disposition home or self-care (01) ==
LOC: LBN 09:15
PROVIDERS: PCP Family Medicine; Visit Provider Urology
DX: C67.9 Malignant neoplasm of bladder, unspecified (principal)
CPT/HCPCS: 88104

== ENCOUNTER 2025-03-25 19:29 | Outpatient (REF) | payer MEDICARE, OTHER, SELFPAY ==
[2025-03-26 15:29] LABS: COMMENT (LAB VIEW ONLY) 136.14 mg/dL; Microalb ug/mg Crea 3.7 ug/mg Cr
== END 2025-03-25 19:30 | disposition home or self-care (01) ==
LOC: NCHCN 19:29
PROVIDERS: PCP Family Medicine; Visit Provider Family Medicine
DX: E11.9 Type 2 diabetes mellitus without complications (principal)
CPT/HCPCS: 82043; 82570